=== PATIENT | male | born 1935 | race Caucasian/White ===

== ENCOUNTER → 2016-12-22 | Outpatient (CLI) | payer OTHER ==
[~2016-12-22] MED LIST: ACAR25TA PO; ASPEC81 PO; DLN100 PO; GLC/500 PO; GLIM2TAB2 PO; HLD1 PO; LISI-725 PO; LXP10 PO; MRLP17X PO; SALI0.6510; SIMV40TA4 PO
[2016-12-22 10:04] LABS: ESTIMATED AVERAGE GLUCOSE 183 mg/dl; HA1C FLAG Normal (Normal)
== END ==
LOC: C.LABCC 08:39
PROVIDERS: ATTEND Internal Medicine
DX: E11.9 Type 2 diabetes mellitus without complications (principal)

== ENCOUNTER → 2017-04-21 | Outpatient (CLI) | payer OTHER ==
[2017-04-21 12:37] LABS: ESTIMATED AVERAGE GLUCOSE 209 mg/dl; HA1C FLAG Normal (Normal)
== END ==
LOC: C.LABCC 12:38
PROVIDERS: ATTEND Internal Medicine
DX: E11.9 Type 2 diabetes mellitus without complications (principal)

== ENCOUNTER → 2017-04-25 | Outpatient (CLI) | payer OTHER ==
[2017-04-25 09:45] LABS: BLOOD UREA NITROGEN 28 mg/dl (7-18); BUN/CREATININE RATIO 28.5 (10-20); CARBON DIOXIDE 26 mmol/L (21-32); CHLORIDE 109 mmol/L (98-107); CREATININE 0.98 mg/dl (0.60-1.40); GLUCOSE 143 mg/dl (70-99); POTASSIUM 4.7 mmol/L (3.5-5.1); SODIUM 141 mmol/L (136-145)
[2017-04-25 09:53] LABS: ESTIMATED AVERAGE GLUCOSE 212 mg/dl; HA1C FLAG Normal (Normal)
[2017-04-25 10:18] LABS: CALCIUM 8.6 mg/dl (8.5-10.1)
== END | disposition home or self-care (01) ==
LOC: C.LABCC 09:13
PROVIDERS: ATTEND Internal Medicine
DX: E11.9 Type 2 diabetes mellitus without complications (principal)

== ENCOUNTER → 2017-08-18 | Outpatient (CLI) | payer OTHER ==
[2017-08-18 08:30] LABS: ESTIMATED AVERAGE GLUCOSE 177 mg/dl; HA1C FLAG Normal (Normal)
== END ==
LOC: C.LABCC 07:54
PROVIDERS: ATTEND Internal Medicine
DX: E11.9 Type 2 diabetes mellitus without complications (principal)

== ENCOUNTER → 2017-08-23 | Outpatient (CLI) | payer OTHER ==
[2017-08-23 09:55] LABS: BASO % 0.6 %; BASO ABS # 0.03 K/uL (0-0.2); COMPLETE YES; EOS % 3.9 %; HEMATOCRIT 31.7 % (42-52); IG% 0.2 %; LYMPH % 28.7 %; LYMPH ABS # 1.55 K/uL (1.2-3.4); MEAN CELL VOLUME 88.8 fL (80-100); MEAN CORPUSCULAR HEMOGLOBIN 27.2 pg (25-34); MEAN CORPUSCULAR HGB CONC 30.6 g/dl (32-36); MEAN PLATELET VOLUME 9.3 fL (7.4-10.4); MONO % 13.1 %; NEUT % 53.5 %; PLATELET COUNT 306 K/uL (130-400); RED BLOOD COUNT 3.57 M/uL (4.7-6.1)
[2017-08-23 10:05] LABS: BLOOD UREA NITROGEN 28 mg/dl (7-18); BUN/CREATININE RATIO 28.1 (10-20); CALCIUM 8.6 mg/dl (8.5-10.1); CARBON DIOXIDE 24 mmol/L (21-32); CHLORIDE 109 mmol/L (98-107); CHOLESTEROL 163 mg/dl (0-200); GLUCOSE 116 mg/dl (70-99); SODIUM 141 mmol/L (136-145); TRIGLYCERIDES 127 mg/dl (0-150); VERY LOW DENSITY LIPOPROT CALC 25 mg/dl
[2017-08-23 10:14] LABS: CHOLESTEROL/HDL RATIO 2.9; HDL CHOLESTEROL 57 mg/dl; LDL CHOLESTEROL CALCULATED 81 mg/dl; THYROID STIMULATING HORMONE 0.351 uIu/ml (0.300-4.500)
== END ==
LOC: C.LABCC 09:09
PROVIDERS: ATTEND Internal Medicine
DX: E11.9 Type 2 diabetes mellitus without complications (principal); I10 Essential (primary) hypertension; Z51.81 Encounter for therapeutic drug level monitoring; Z79.899 Other long term (current) drug therapy

== ENCOUNTER → 2017-09-01 | Outpatient (CLI) | payer OTHER ==
[2017-09-01 08:11] LABS: BASO % 0.4 %; BASO ABS # 0.02 K/uL (0-0.2); EOS % 3.6 %; HEMATOCRIT 28.4 % (42-52); IG% 0.4 %; LYMPH % 28.2 %; LYMPH ABS # 1.57 K/uL (1.2-3.4); MEAN CELL VOLUME 86.9 fL (80-100); MEAN CORPUSCULAR HEMOGLOBIN 27.2 pg (25-34); MEAN CORPUSCULAR HGB CONC 31.3 g/dl (32-36); MEAN PLATELET VOLUME 9.4 fL (7.4-10.4); MONO % 16.2 %; NEUT % 51.2 %; PLATELET COUNT 253 K/uL (130-400); RED BLOOD COUNT 3.27 M/uL (4.7-6.1); WHITE BLOOD COUNT 5.57 K/uL (4.8-10.8)
[2017-09-01 08:35] LABS: COMPLETE YES
== END ==
LOC: C.LABCC 07:50
PROVIDERS: ATTEND Internal Medicine
DX: D64.9 Anemia, unspecified (principal)

== ENCOUNTER → 2017-09-11 | Outpatient (CLI) | payer OTHER ==
[2017-09-11 09:59] LABS: BASO % 0.6 %; BASO ABS # 0.03 K/uL (0-0.2); COMPLETE YES; EOS % 3.3 %; HEMATOCRIT 31.8 % (42-52); IG% 0.2 %; LYMPH % 28.9 %; LYMPH ABS # 1.49 K/uL (1.2-3.4); MEAN CELL VOLUME 87.1 fL (80-100); MEAN CORPUSCULAR HEMOGLOBIN 27.1 pg (25-34); MEAN CORPUSCULAR HGB CONC 31.1 g/dl (32-36); MEAN PLATELET VOLUME 9.5 fL (7.4-10.4); MONO % 14.1 %; NEUT % 52.9 %; PLATELET COUNT 267 K/uL (130-400); RED BLOOD COUNT 3.65 M/uL (4.7-6.1); WHITE BLOOD COUNT 5.16 K/uL (4.8-10.8)
[2017-09-11 10:19] LABS: FERRITIN 13.7 ng/ml (8.0-388.0)
== END ==
LOC: C.LABCC 09:11
PROVIDERS: ATTEND Internal Medicine
DX: D64.9 Anemia, unspecified (principal)

== ENCOUNTER → 2017-10-18 | Outpatient (CLI) | payer OTHER | LOC: C.LABCC 08:39 | PROVIDERS: ATTEND Internal Medicine | DX: E55.9 Vitamin D deficiency, unspecified (principal) ==

== ENCOUNTER → 2017-12-21 | Outpatient (CLI) | payer OTHER ==
[2017-12-21 09:56] LABS: HEMOGLOBIN A1C 6.8 % (4.5-5.6)
== END ==
LOC: C.LABCC 08:58
PROVIDERS: ATTEND Internal Medicine
DX: E11.9 Type 2 diabetes mellitus without complications (principal)

== ENCOUNTER → 2018-03-07 | Outpatient (CLI) | payer OTHER ==
[~2018-03-07] MED LIST changes: -ASPEC81 PO; +ASPI-320 PO
[2018-03-07 09:43] LABS: BASO % 0.6 %; BASO ABS # 0.03 K/uL (0-0.2); EOS % 2.9 %; EOS ABS # 0.16 K/uL (0-0.5); HEMATOCRIT 34.8 % (42-52); IG# 0.01 K/uL (0.00-0.02); LYMPH % 29.5 %; MEAN CELL VOLUME 89.2 fL (80-100); MEAN CORPUSCULAR HEMOGLOBIN 28.2 pg (25-34); MEAN CORPUSCULAR HGB CONC 31.6 g/dl (32-36); MEAN PLATELET VOLUME 9.5 fL (7.4-10.4); MONO % 15.8 %; MONO ABS # 0.86 K/uL (0.11-0.59); NEUT ABS # 2.77 K/uL (1.4-6.5); PLATELET COUNT 273 K/uL (130-400); RED CELL DISTRIBUTION WIDTH CV 14.3 % (11.5-14.5); RED CELL DISTRIBUTION WIDTH SD 46.5 fL (36.4-46.3); WHITE BLOOD COUNT 5.43 K/uL (4.8-10.8)
[2018-03-07 09:53] LABS: ALBUMIN 3.3 gm/dl (3.4-5.0); ALT/SGPT 17 U/L (12-78); AST/SGOT 12 U/L (15-37); BLOOD UREA NITROGEN 29 mg/dl (7-18); CALCIUM 8.6 mg/dl (8.5-10.1); CARBON DIOXIDE 26 mmol/L (21-32); CHOLESTEROL 175 mg/dl (0-200); GLUCOSE 77 mg/dl (70-99); POTASSIUM 5.1 mmol/L (3.5-5.1); SODIUM 141 mmol/L (136-145)
[2018-03-07 10:03] LABS: ALKALINE PHOSPHATASE 97 U/L (45-117); LDL CHOLESTEROL CALCULATED 97 mg/dl; TOTAL PROTEIN 6.9 gm/dl (6.4-8.2)
== END ==
LOC: C.LABCC 09:00
PROVIDERS: ATTEND Internal Medicine
DX: E11.9 Type 2 diabetes mellitus without complications (principal); G40.909 Epilepsy, unspecified, not intractable, without status epilepticus; E78.5 Hyperlipidemia, unspecified; E55.9 Vitamin D deficiency, unspecified

== ENCOUNTER → 2018-03-15 | Outpatient (CLI) | payer OTHER | LOC: C.LABCC 07:40 | PROVIDERS: ATTEND Internal Medicine | DX: R56.9 Unspecified convulsions (principal) ==

== ENCOUNTER → 2018-04-01 | Outpatient (CLI) | payer OTHER | LOC: C.LABCC 12:55 | PROVIDERS: ATTEND Internal Medicine | DX: R50.9 Fever, unspecified (principal) ==

== ENCOUNTER → 2018-07-04 | Outpatient (CLI) | payer OTHER ==
[2018-07-04 10:32] LABS: HEMOGLOBIN A1C 6.7 % (4.5-5.6)
== END | disposition home or self-care (01) ==
LOC: C.LABCC 09:12
PROVIDERS: ATTEND Internal Medicine
DX: E11.9 Type 2 diabetes mellitus without complications (principal)

== ENCOUNTER 2019-05-09 11:04 | Inpatient (IN) ==
[2019-05-09] MEDS ORDERED: ACETAMINOPHEN 325 MG TAB PO PRN (12:01)
[2019-05-09] MEDS ORDERED: POLYETHYLENE (MIRALAX) 17 GM PACK PO PRN (12:01)
[2019-05-09] MEDS ORDERED: ONDANSETRON INJ 2 MG/ML 2 ML VIAL IV PRN (12:01)
[2019-05-09] MEDS ORDERED: CARBOHYDRATES FOR HYPOGLYCEMIA PO PRN (12:16)
[2019-05-09] MEDS ORDERED: DEXTROSE 50% 50 ML SYRINGE IV PRN (12:16)
[2019-05-09] MEDS ORDERED: GLUCOSE 10 TABS/TUBE PO PRN (12:16)
[2019-05-09] MEDS ORDERED: GLUCOSE 40% GEL 15 GM TUBE PO PRN (12:16)
[2019-05-09] MEDS ORDERED: GLUCAGON FOR INJ 1 MG VIAL SQ PRN (12:16)
[2019-05-09] MEDS ORDERED: MoRPHine SULFATE 2 MG/ML CARP IV PRN (12:21)
[2019-05-09] MEDS ORDERED: LORazepam 0.5 MG/1 ML VIAL IV PRN (12:21)
[2019-05-09] MEDS ORDERED: MAGNESIUM HYDROXIDE SUSP 30 ML UDC PO PRN (12:23)
[2019-05-09] MEDS ORDERED: ONDANSETRON 4 MG TAB PO PRN (12:23)
[2019-05-09] MEDS ORDERED: BISACODYL 10 MG SUPP PR PRN (12:23)
--- NOTE | 2019-05-09 12:33 | History & Physical Report ---
Date of Service May 09, 2019 Assessment & Plan (1) Diabetic foot infection: Patient is failed outpatient management for his diabetic foot infection with known MRSA by culture. This and will hold his Keflex and doxycycline and start vancomycin therapy. We will not provide gram-negative coverage unless the culture of the wound site provides us concern for gram-negative's. We may consider pursuing an MRI for ostium myelitis as if this would be the case the patient would likely need to progress to below-knee amputation given his previous vascular study showed poor vascular flow and inability to provide intervention to improve. Wound care will see consideration for an irrigation wound VAC is undertaken (2) Diabetes: Patient will remain on basal bolus insulin (3) Anemia, unspecified: Anemia of chronic disease (4) Seizure disorder: Patient is a phenytoin level is subtherapeutic reportedly his seizures are not significant at this time (5) DVT prophylaxis: Heparin subcu for DVT prevention History of Present Illness Primary Care Provider: [facility] Patient is a direct admission from wound care with failing outpatient management for the amputation site of his left great toe. His initial surgery is 03/13. The patient did have a vascular angiogram performed on 04/[address] Ludwig Jaramillo who felt there is no stenosis that was amenable to intervention but there was significant stenosis of decreased blood flow to his foot. The patient has been seeing the outpatient wound care center been on antibiotics including Keflex doxycycline. His wound is has a purulent base or could be greenish slough his foot is erythematous there is no palpable pulses although capillary refill is present but delayed patient has diabetic neuropathy and cannot feel any pain. She is admitted for intravenous antibiotics infectious disease consultation and wound care consultation. Allergies Allergy/AdvReac Type Severity Reaction Status Date / Time Iodinated Contrast- Oral and Allergy Mild Verified 05/09/19 08:48 IV Dye Home Medications Home Medications Medication Instructions Recorded Confirmed Type phenytoin sodium extended 2 cap PO BID 11/02/18 05/09/19 History simvastatin 40 mg PO HS 11/02/18 05/09/19 History ascorbic acid (vitamin C) 500 mg 500 mg PO BID cap 02/05/19 05/09/19 History capsule Fleet Enema [address] DAILY PRN 03/08/19 05/09/19 History Levemir U-100 Insulin 15 unit SUBCUT QPM 03/08/19 05/09/19 History Levemir U-100 Insulin 20 unit SUBCUT QAM 03/08/19 05/09/19 History Novolog U-100 Insulin aspart 1 dose SUBCUT WM 03/08/19 05/09/19 History Novolog U-100 Insulin aspart 8 unit SUBCUT QAM 03/08/19 05/09/19 History Novolog U-100 Insulin aspart 15 unit SUBCUT BID 03/08/19 05/09/19 History acetaminophen 2 tab PO Q6H PRN MDD 3 gms 03/08/19 05/09/19 History bisacodyl [Dulcolax (bisacodyl)] [address] DAILY PRN 03/08/19 05/09/19 History lisinopril 10 mg PO QAM 03/08/19 05/09/19 History magnesium hydroxide [Milk of 30 ml PO DAILY PRN 03/08/19 05/09/19 History Magnesia] multivitamin with minerals 1 tab PO QAM 03/08/19 05/09/19 History ondansetron HCl [Zofran] 4 mg PO Q6H PRN 03/08/19 05/09/19 History protein supplement 30 ml PO BID 03/08/19 05/09/19 History hydrocodone 5 mg-acetaminophen 325 1 tab PO Q6H 04/16/19 05/09/19 History mg tablet acetaminophen 650 mg PO BID 04/24/19 05/09/19 History cephalexin 500 mg capsule 500 mg PO BID 05/01/19 05/09/19 History doxycycline hyclate 100 mg capsule 100 mg PO BID 05/06/19 05/09/19 History Past Med/Surg History Medical History Amputation of great toe, left, traumatic (Acute) Acute kidney failure with tubular necrosis (Chronic) Anemia, unspecified (Chronic) 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) Difficulty in walking, not elsewhere classified (Chronic) Dyslipidemia (Chronic) Dysphagia, oral phase (Chronic) Epilepsy, unspecified, not intractable, without status epilepticus (Chronic) Muscle weakness (generalized) (Chronic) Nontoxic simple goitre (Chronic) Syncope and collapse (Chronic) Compression fracture of T10 vertebra Dementia Diabetes Hypertension Metabolic acidosis Metabolic encephalopathy Neuropathy Osteomyelitis LEG (CURRENTLY GETTING IV ANTIBIOTICS) Rotator cuff tear arthropathy of right shoulder Seizure disorder Thyroid goiter RT SIDE Surgical History No pertinent past surgical history S/P PICC central line placement Social History Preferred Language: Togolese Communication Ability: Effective Shower Doors And Panels Fabricator Required: No Beliefs That Will Affect Care: None Current Living Situation: [facility] Current Living Situation Comment: pt resident of [facility] Other Information That Helps Us Care for You: No Feels Safe at Home: Yes Safety Concerns: Feels Safe At This Time Smoking Status: Former smoker Tobacco Type: pipe and cigars Cigarettes Per Day: Smoked in the s Do You Dip or Chew Tobacco: No Second Hand Exposure: No Tobacco Cessation Education Requested by Patient: No Hx Alcohol Use: No Hx Substance Use: No Review of Systems Review of Systems: ROS: well nourished well developed. No double vision blurry vision No problems with speech or swallowing No palpitations, chest pain or pressure No Wheezing or breathing issues No abdominal pain nausea vomiting diarrhea changes in appetite or weight No burning urine urine frequency or changes in color No focal joint pain or muscle pain Redness to his left foot with greenish slough off in a 2 x 4 cm wound from his previous left great toe imitation March 13, 2019 No unusual bruising or bleeding No focused back pain or loss of strength diabetic peripheral neuropathy is present No changes in memory or confusion Physical Exam Physical Exam: The patient appeared well nourished and normally developed. Vital signs as documented. Head exam is unremarkable. normocephalic, atraumatic Neck is without jugular venous distension, thyromegaly, or lymphademopathy Lungs are clear to auscultation and percussion. Cardiac exam reveals Rhythm is regular. First and second heart sounds normal. Abdominal exam reveals normal bowel sounds, no masses, no organomegaly Extremities are left foot is erythematous and slightly swollen he has gross sensation but fine touch is not intact his wound looks to be slightly dehisced with slough or purulent material in it base Neurologic exam is A&Ox3, peripheral neuropathy from diabetes, strength is equal bilateral Psychologically seems neither anxious or depressed Skin is warm Dry except noted to the left foot Results & Data Vital Signs (Past 12 Hours) Vital Signs Temp Pulse Resp BP Pulse Ox 05/09/19 11:36 36.5 C 83 18 115/[address] Jaramillo did angiogram 04/24/19 REsults; 1. Left lower extremity with mild to moderate distal SFA disease (no significant gradient on catheter pullback). 2. 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 Unsuccessful attempt at revascularization of occluded anterior tibial artery.
[2019-05-09] MEDS ORDERED: PATIENT'S HEIGHT AND/OR WEIGHT NEEDED SCH (12:45)
[2019-05-09] MEDS ORDERED: VANCOMYCIN CONSULT ACTIVE PRN (12:47)
[2019-05-09 13:10] LABS: Basophils # (auto) 0.02 K/uL (0-0.2); Basophils % (auto) 0.2 %; Eosinophils # (auto) 0.18 K/uL (0-0.5); Eosinophils % (auto) 2.2 %; Hematocrit (blood only) 31.4 % (42-52); Hemoglobin 10.1 g/dL (14.0-18.0); Immature Granulocytes # (auto) 0.04 K/uL (0.00-0.02); Immature Granulocytes % (auto) 0.5 %; Lymphocytes # (auto) 1.77 K/uL (1.2-3.4); Lymphocytes % (auto) 21.4 %; Mean Corpuscular Hgb Conc 32.2 g/dL (32-36); Mean Corpuscular Volume 92.1 fL (80-100); Mean Platelet Volume 9.3 fL (7.4-10.4); Monocytes # (auto) 0.94 K/uL (0.11-0.59); Monocytes % (auto) 11.4 %; Neutrophils # (auto) 5.32 K/uL (1.4-6.5); Neutrophils % (auto) 64.3 %; Platelet Count 319 K/uL (130-400); RDW Standard Deviation 50.9 fL (36.4-46.3); Red Blood Count 3.41 M/uL (4.7-6.1); White Blood Count 8.27 K/uL (4.8-10.8)
[2019-05-09 13:29] LABS: BUN Creatinine Ratio 27.8 (10-20); Calcium 9.2 mg/dl (8.5-10.1); Est GFR (African American) 79.6; Est GFR (Non-African American) 68.7; Potassium 4.9 mmol/L (3.5-5.1)
[2019-05-09] MEDS ORDERED: VANCOMYCIN HCL 2,250 MG in SODIUM CHLORIDE 0.9% 500 ML IV ONE (14:00)
--- NOTE | 2019-05-09 14:18 | Pharmacy Report ---
Pharmacy Abx Initial Consult - Date of Service May 09, 2019 - Pharmacy Dosing Scope Date of Consult: 05/09/19 Consultation requested by: Dr. Kendrick Pharmacy is consulted to initiate Vancomycin IV dosing therapy, order appropriate labs and adjust drug dose/frequency. - Subjective The patient is a 84 year old M admitted on 05/09/19 11:06. - Objective Height: 5 ft 6 in Weight: 89.1 kg Vital Signs (Past 12hrs): Vital Signs Temp Pulse Resp BP Pulse Ox 05/09/19 11:36 36.5 C 83 18 115/66 96 Lab Results (24hrs): Laboratory Tests (24 Hours) 05/09/19 05/09/19 12:42 12:42 WBC 8.27 Neut # (Auto) 5.32 Creatinine 0.99 Est Cr Clr Drug Dosing 56.0 - Risk Factors for Resistance * Resident in a penitentiary or extended-care facility * DM * Antimicrobial use within the last 90 days Doxy, Cephalexin - Assessment & Plan Assessment 84 year old M initiated on IV Vancomycin for MRSA DM Foot Ulcer Plan Vancomycin IV * Estimated PK Parameters: Vd 0.65 L/kg, Arnold 0.044 hr-1, t1/2 15.8 hr * Loading dose: 2,250 mg (25 mg/kg) * Maintenance dose: 1,250 mg IV (14 mg/kg) every 18 hours * Goal trough level for SST : 10 to 20 mcg/mL depending on c/s FAVIO * Trough level ordered for 05/11/18 @ 1930 Pharmacy will continue to follow and will adjust dose/frequency as necessary. Thank you.
[2019-05-09] MEDS: HYDROCODONE/ACETAMOPHEN 5/325MG TAB PO SCH ×2 (14:37→17:33)
[2019-05-09] MEDS: INSULIN ASPART 100 UNITS/ML 3 ML PEN SC SCH ×2 (17:27→21:39)
[2019-05-09] MEDS: INSULIN DETEMIR FLEXPEN/FLEX TOUCH 100 UNITS/ML 3ML SC SCH (21:39)
[2019-05-09] MEDS: HEPARIN SOD 5,000 UNIT/0.5 ML VIAL SQ SCH (21:41)
[2019-05-09] MEDS: PHENYTOIN SODIUM ER 100 MG CAP PO SCH (21:43)
[2019-05-09] MEDS: SIMVASTATIN 40 MG TAB PO SCH (21:43)
[2019-05-09] MEDS: ASCORBIC ACID 500 MG TAB PO SCH (21:43)
[2019-05-10] MEDS: HYDROCODONE/ACETAMOPHEN 5/325MG TAB PO SCH ×5 (00:57→23:51)
[2019-05-10 08:20] LABS: Estimated Average Glucose 174 mg/dl; Hemoglobin A1C 7.7 % (4.5-5.6)
[2019-05-10 08:23] LABS: BUN Creatinine Ratio 26.2 (10-20); Calcium 8.8 mg/dl (8.5-10.1); Creatinine Clr Calc Pharmacy 66.8 ml/min; Est GFR (African American) 92.3; Est GFR (Non-African American) 79.7; Potassium 4.6 mmol/L (3.5-5.1)
[2019-05-10] MEDS: VANCOMYCIN HCL 1,250 MG in SODIUM CHLORIDE 0.9% 250 ML IV SCH (08:45)
[2019-05-10] MEDS: LISINOPRIL 10 MG TAB PO SCH (08:46)
[2019-05-10] MEDS: PHENYTOIN SODIUM ER 100 MG CAP PO SCH ×2 (08:46→20:25)
[2019-05-10] MEDS: HEPARIN SOD 5,000 UNIT/0.5 ML VIAL SQ SCH ×2 (08:46→20:26)
[2019-05-10] MEDS: ASCORBIC ACID 500 MG TAB PO SCH ×2 (08:46→20:24)
[2019-05-10] MEDS: INSULIN ASPART 100 UNITS/ML 3 ML PEN SC SCH ×4 (08:51→20:30)
[2019-05-10] MEDS ORDERED: INSULIN DETEMIR FLEXPEN/FLEX TOUCH 100 UNITS/ML 3ML SC SCH (09:00)
[2019-05-10] MEDS ORDERED: LORazepam 0.5 MG/1 ML VIAL IV PRN (10:41)
[2019-05-10] MEDS: INSULIN DETEMIR FLEXPEN/FLEX TOUCH 100 UNITS/ML 3ML SC SCH ×2 (11:08→20:31)
--- NOTE | 2019-05-10 15:08 | Hospitalist Progress Note ---
Date of Service May 10, 2019 Assessment & Plan (1) Diabetic foot infection: Patient is failed outpatient management for his diabetic foot infection with known MRSA by culture. Remains on vancomycin therapy. We will not provide gram-negative coverage unless the culture of the wound site provides us concern for gram-negative's. As patient needs wound VAC placed this will place over the weekend and then we will be pursuing an MRI for ostium myelitis after the weekend. Wound care will see consideration for an irrigation wound VAC is undertaken (2) Diabetes: Patient will remain on basal bolus insulin (3) Anemia, unspecified: Anemia of chronic disease remained stable (4) Seizure disorder: Patient is a phenytoin level is subtherapeutic reportedly his seizures are not significant at this time remains without seizures (5) DVT prophylaxis: Heparin subcu for DVT prevention Subjective Patient has no complaints or problems feels somewhat better he was unable to tolerate MRI scan this morning therefore we will postponed to Monday as he needs his wound VAC placed for the weekend Review of Systems Review of Systems: ROS: well nourished well developed. No double vision blurry vision No problems with speech or swallowing No palpitations, chest pain or pressure No Wheezing or breathing issues No abdominal pain nausea vomiting diarrhea changes in appetite or weight No burning urine urine frequency or changes in color Some mild discomfort to his left foot Redness his left foot is improved since 05/09 No unusual bruising or bleeding No focused back pain has some paresthesias to his feet or loss of strength No changes in memory or confusion Physical Exam Physical Exam: The patient appeared well nourished and normally developed. Vital signs as documented. Head exam is unremarkable. normocephalic, atraumatic Neck is without jugular venous distension, thyromegaly, or lymphademopathy Lungs are clear to auscultation and percussion. Cardiac exam reveals Rhythm is regular. Systolic ejection murmur is present Abdominal exam reveals normal bowel sounds, no masses, no organomegaly Extremities are nonedematous and both pedal pulses are present Neurologic exam is A&Ox3, no focal deficits, strength is equal bilateral Psychologically seems neither anxious or depressed Skin is warm Dry improving erythema to his left foot Results & Data Vital Signs (Past 12 Hours) Vital Signs Temp Pulse Resp BP Pulse Ox 05/10/19 07:00 37 C 84 20 120/69 92 PG Care Time/CCT Total # of Minutes Spent Total Time Spent with Patient: Total time spent is greater than 50% in coordination of care (as documented) at patient's floor/unit and/or counseling patient:
[2019-05-10] MEDS: SIMVASTATIN 40 MG TAB PO SCH (20:24)
[2019-05-11] MEDS: VANCOMYCIN HCL 1,250 MG in SODIUM CHLORIDE 0.9% 250 ML IV SCH ×2 (02:12→20:33)
[2019-05-11] MEDS: HYDROCODONE/ACETAMOPHEN 5/325MG TAB PO SCH ×4 (05:41→23:47)
[2019-05-11 07:21] LABS: Hematocrit (blood only) 28.6 % (42-52); Hemoglobin 9.2 g/dL (14.0-18.0); Mean Corpuscular Hgb Conc 32.2 g/dL (32-36); Mean Corpuscular Volume 90.5 fL (80-100); Platelet Count 291 K/uL (130-400); RDW Coefficient of Variation 14.3 % (11.5-14.5); RDW Standard Deviation 47.8 fL (36.4-46.3); Red Blood Count 3.16 M/uL (4.7-6.1); White Blood Count 7.18 K/uL (4.8-10.8)
[2019-05-11 07:40] LABS: BUN Creatinine Ratio 19.4 (10-20); Calcium 8.4 mg/dl (8.5-10.1); Creatinine Clr Calc Pharmacy 63.7 ml/min; Est GFR (African American) 90.6; Est GFR (Non-African American) 78.1; Potassium 4.4 mmol/L (3.5-5.1)
[2019-05-11] MEDS: ASCORBIC ACID 500 MG TAB PO SCH ×2 (09:59→20:36)
[2019-05-11] MEDS: PHENYTOIN SODIUM ER 100 MG CAP PO SCH ×2 (09:59→20:37)
[2019-05-11] MEDS: INSULIN DETEMIR FLEXPEN/FLEX TOUCH 100 UNITS/ML 3ML SC SCH ×2 (10:00→21:54)
[2019-05-11] MEDS: LISINOPRIL 10 MG TAB PO SCH (10:00)
[2019-05-11] MEDS: HEPARIN SOD 5,000 UNIT/0.5 ML VIAL SQ SCH ×2 (10:00→21:54)
[2019-05-11] MEDS: INSULIN ASPART 100 UNITS/ML 3 ML PEN SC SCH ×4 (10:01→21:55)
--- NOTE | 2019-05-11 14:57 | Hospitalist Progress Note ---
Date of Service May 11, 2019 Assessment & Plan (1) Diabetic foot infection: Patient is failed outpatient management for his diabetic foot infection with known MRSA by culture. His foot has improved on vancomycin therapy. We will not provide gram-negative coverage as wound site cultures confirmed MRSA 05/10, a wound VAC was placed May still consider pursuing MRI for ostium myelitis after the weekend. Wound care will see consideration for an irrigation wound VAC is undertaken (2) Diabetes: Patient has except for glucose is on basal bolus insulin (3) Anemia, unspecified: Anemia of chronic disease continues to remain stable (4) Seizure disorder: Patient is a phenytoin level is subtherapeutic he remains without seizures (5) DVT prophylaxis: Heparin subcu for DVT prevention Subjective pt has no complaints or issues, tolerating wound vacc, foot less swollen and red, Review of Systems Review of Systems: ROS: well nourished well developed. No double vision blurry vision No problems with speech or swallowing No palpitations, chest pain or pressure No Wheezing or breathing issues No abdominal pain nausea vomiting diarrhea changes in appetite or weight No burning urine urine frequency or changes in color No focal joint pain or muscle pain some redness to foot, but much less No unusual bruising or bleeding No focused back pain or loss of strength No changes in memory or confusion Physical Exam Physical Exam: The patient appeared well nourished and normally developed. Vital signs as documented. Head exam is unremarkable. normocephalic, atraumatic Neck is without jugular venous distension, thyromegaly, or lymphademopathy Lungs are clear to auscultation and percussion. Cardiac exam reveals Rhythm is regular. First and second heart sounds normal. Abdominal exam reveals normal bowel sounds, no masses, no organomegaly Extremities left foot his wound VAC in place at the bed of the previous left great toe the foot is less swollen less erythematous still with 4+ pulses and capillary refill Neurologic exam is A&Ox3, diabetic peripheral neuropathy is present, strength is equal bilateral Psychologically seems neither anxious or depressed Skin is warm / Dry except for left foot as mentioned Results & Data Vital Signs (Past 12 Hours) Vital Signs Temp Pulse Resp BP Pulse Ox 05/11/19 08:00 36.9 C 87 19 111/64 91 PG Care Time/CCT Total # of Minutes Spent Total Time Spent with Patient: Total time spent is greater than 50% in coordination of care (as documented) at patient's floor/unit and/or counseling patient:
[2019-05-11] MEDS ORDERED: VANCOMYCIN TROUGH ONE (19:30)
[2019-05-11] MEDS: SIMVASTATIN 40 MG TAB PO SCH (20:36)
--- NOTE | 2019-05-11 21:19 | Pharmacy Report ---
Pharmacy Abx Dose Short Note - Date of Service May 11, 2019 - Assessment & Plan A/P Trough prior to Css, 14.3mcg/mL. Will order a trough tomorrow, 05/12/19, that is reflective of Css. Continue dose and regimen. Pharmacy will continue to follow and will adjust dose/frequency as necessary. Thank you.
[2019-05-12] MEDS ORDERED: VANCOMYCIN HCL 1,250 MG in SODIUM CHLORIDE 0.9% 250 ML IV SCH (06:00)
[2019-05-12] MEDS: HYDROCODONE/ACETAMOPHEN 5/325MG TAB PO SCH ×3 (06:12→17:51)
[2019-05-12 08:04] LABS: BUN Creatinine Ratio 20.9 (10-20); Creatinine Clr Calc Pharmacy 60.3 ml/min; Potassium 4.3 mmol/L (3.5-5.1)
[2019-05-12] MEDS: PHENYTOIN SODIUM ER 100 MG CAP PO SCH ×2 (08:05→20:52)
[2019-05-12] MEDS: LISINOPRIL 10 MG TAB PO SCH (08:05)
[2019-05-12] MEDS: HEPARIN SOD 5,000 UNIT/0.5 ML VIAL SQ SCH ×2 (08:05→20:53)
[2019-05-12] MEDS: ASCORBIC ACID 500 MG TAB PO SCH ×2 (08:05→20:52)
[2019-05-12] MEDS: INSULIN ASPART 100 UNITS/ML 3 ML PEN SC SCH ×4 (08:06→20:56)
[2019-05-12] MEDS: INSULIN DETEMIR FLEXPEN/FLEX TOUCH 100 UNITS/ML 3ML SC SCH ×2 (08:08→20:54)
[2019-05-12] MEDS ORDERED: VANCOMYCIN TROUGH ONE (13:30)
--- NOTE | 2019-05-12 14:31 | Pharmacy Report ---
Pharmacy Abx Dose Short Note - Date of Service May 12, 2019 - Assessment & Plan Assessment 84 year old M receiving vancomycin for treatment of diabetic foot infection Day #4 of antimicrobial therapy. Plan Vancomycin * Trough level came back at slightly subtherapeutic at ~14.7 mcg/ml (goal 15-20 mcg/ml - for wound infection/possible osteo concern) * Will adjust to vancomycin 1250 mg iv q 16 hrs to target slightly higher trough level * Per MD notes, infection improving - currently has wound vac in place, but may order MRI of foot to r/o osteo 05/13 * Renal function remains stable, CrCl ~60 ml/min * Will recheck trough in next 2-3 days or sooner depending on clinical presentation/xray Pharmacy will continue to follow and will adjust dose/frequency as necessary. Thank you.
--- NOTE | 2019-05-12 14:40 | Hospitalist Progress Note ---
Date of Service May 12, 2019 Assessment & Plan (1) Diabetic foot infection: Patient is failed outpatient management for his diabetic foot infection with known MRSA by culture. His foot has improved on vancomycin therapy. We will not provide gram-negative coverage as wound site cultures confirmed MRSA 05/10, a wound VAC was placed patient has had dramatic improvement with vancomycin therapy and the wound VAC. The VAC be removed and reevaluated on Sunday 05/13 consideration for antibiotic therapy will be undertaken with infectious disease oversight. Wound care following and managing wound VAC (2) Diabetes: Patient remains on basal bolus insulin (3) Anemia, unspecified: Anemia of chronic disease present but without concern for change (4) Seizure disorder: Patient is a phenytoin level is subtherapeutic he remains without seizures (5) DVT prophylaxis: Heparin subcu for DVT prevention Subjective this pt is doing better, foot looks much improved on vancomycin, may consider home on linezolid?? VAc in place will be evaluated 05/13/19 Review of Systems Review of Systems: ROS: well nourished well developed. No double vision blurry vision No problems with speech or swallowing No palpitations, chest pain or pressure No Wheezing or breathing issues No abdominal pain nausea vomiting diarrhea changes in appetite or weight No burning urine urine frequency or changes in color pt has paresthesias, but overal feels foot is less painful No skin rashes or oral lesions No unusual bruising or bleeding No focused back pain or numbness or loss of strength No changes in memory or confusion Physical Exam Physical Exam: The patient appeared well nourished and normally developed. Vital signs as documented. Head exam is unremarkable. normocephalic, atraumatic Neck is without jugular venous distension, thyromegaly, or lymphademopathy Lungs are clear to auscultation and percussion. Cardiac exam reveals Rhythm is regular. Systolic ejection murmur is heard Abdominal exam reveals normal bowel sounds, no masses, no organomegaly Extremities, foot is much less erythematous wound VAC is in place neuropathy bilaterally there improved swelling Neurologic exam is A&Ox3, strength is equal bilateral Psychologically seems neither anxious or depressed Skin is warm Dry with the exception of the foot with wound VAC in place Results & Data Vital Signs (Past 12 Hours) Vital Signs Temp Pulse Resp BP Pulse Ox 05/12/19 08:26 36.8 C 87 19 114/72 91 PG Care Time/CCT Total # of Minutes Spent Total Time Spent with Patient: Total time spent is greater than 50% in coordination of care (as documented) at patient's floor/unit and/or counseling patient:
[2019-05-12] MEDS: VANCOMYCIN HCL 1,250 MG in SODIUM CHLORIDE 0.9% 250 ML IV SCH (15:09)
[2019-05-12] MEDS: SIMVASTATIN 40 MG TAB PO SCH (20:53)
[2019-05-13] MEDS: HYDROCODONE/ACETAMOPHEN 5/325MG TAB PO SCH ×5 (00:05→23:50)
[2019-05-13] MEDS ORDERED: LORazepam 0.5 MG/1 ML VIAL IV PRN (04:23)
[2019-05-13] MEDS: VANCOMYCIN HCL 1,250 MG in SODIUM CHLORIDE 0.9% 250 ML IV SCH ×2 (05:58→21:01)
[2019-05-13 06:11] LABS: Hematocrit (blood only) 29.7 % (42-52); Hemoglobin 9.8 g/dL (14.0-18.0); Mean Corpuscular Volume 90.5 fL (80-100); Mean Platelet Volume 9.2 fL (7.4-10.4); Platelet Count 322 K/uL (130-400); RDW Coefficient of Variation 14.3 % (11.5-14.5); RDW Standard Deviation 47.6 fL (36.4-46.3); Red Blood Count 3.28 M/uL (4.7-6.1); White Blood Count 7.74 K/uL (4.8-10.8)
[2019-05-13 06:39] LABS: BUN Creatinine Ratio 19.1 (10-20); Calcium 8.8 mg/dl (8.5-10.1); Creatinine Clr Calc Pharmacy 60.9 ml/min; Est GFR (African American) 88.1; Potassium 4.1 mmol/L (3.5-5.1)
[2019-05-13] MEDS: LISINOPRIL 10 MG TAB PO SCH (07:51)
[2019-05-13] MEDS: PHENYTOIN SODIUM ER 100 MG CAP PO SCH ×2 (07:51→20:58)
[2019-05-13] MEDS: ASCORBIC ACID 500 MG TAB PO SCH ×2 (07:52→21:01)
[2019-05-13] MEDS: INSULIN ASPART 100 UNITS/ML 3 ML PEN SC SCH ×4 (08:48→20:59)
[2019-05-13] MEDS: HEPARIN SOD 5,000 UNIT/0.5 ML VIAL SQ SCH ×2 (08:50→20:58)
[2019-05-13] MEDS: INSULIN DETEMIR FLEXPEN/FLEX TOUCH 100 UNITS/ML 3ML SC SCH ×2 (08:50→21:00)
--- NOTE | 2019-05-13 10:29 | Infectious Disease Consult ---
Date of Consultation May 13, 2019 Assessment & Plan (1) Diabetic foot infection: plan was to convert patient to po zyvox upon d/c. agree with this plan. would give 4 weeks. can follow up with ID at wound center as previously scheduled. Alternative plan would be augmentin 875mg po bid and bactrim ds bid but would prefer to use zyvox, if able. ok for d/c when otherwise stable. History of Present Illness Attending Physician: Ayo English pt admitted due to worsening appearance of foot wound, failed revascularization. follows at wound center, last seen by ID in early April, keflex was added to doxy for wound culture growing MRSA and GBS, however, he was only taken keflex, bactrim then started by snf. he was changed back to doxy and keflex but had worsening appearance of wound. was admitted to undergo irrigating vac and had improvement over weekend. placed on vanco on admission and remains on this. ID consulted for d/c planning. new wound culture this admission growing MRSA again but now resistant to doxy and E. faecalis as well, alvarado sensitive. tolerating abx. no pain in foot, states he is feeling somewhat down today and would like to be d/c. vac to be placed today, currently off. tolerating abx, afebrile. no cp, sob, cough, no n/v/d/abd pain, min pain in foot. wbc 7.7. no imaging to review this admission, afebrile. Allergies Allergy/AdvReac Type Severity Reaction Status Date / Time Iodinated Contrast- Oral and Allergy Mild Verified 05/09/19 08:48 IV Dye Home Medications Home Medications Medication Instructions Recorded Confirmed Type phenytoin sodium extended 2 cap PO BID 11/02/18 05/09/19 History simvastatin 40 mg PO HS 11/02/18 05/09/19 History ascorbic acid (vitamin C) 500 mg 500 mg PO BID cap 02/05/19 05/09/19 History capsule Fleet Enema 1 dose [place] DAILY PRN 03/08/19 05/09/19 History Levemir U-100 Insulin 15 unit SUBCUT QPM 03/08/19 05/09/19 History Levemir U-100 Insulin 20 unit SUBCUT QAM 03/08/19 05/09/19 History Novolog U-100 Insulin aspart 1 dose SUBCUT WM 03/08/19 05/09/19 History Novolog U-100 Insulin aspart 8 unit SUBCUT QAM 03/08/19 05/09/19 History Novolog U-100 Insulin aspart 15 unit SUBCUT BID 03/08/19 05/09/19 History acetaminophen 2 tab PO Q6H PRN MDD 3 gms 03/08/19 05/09/19 History bisacodyl [Dulcolax (bisacodyl)] 10 mg [place] DAILY PRN 03/08/19 05/09/19 History lisinopril 10 mg PO QAM 03/08/19 05/09/19 History magnesium hydroxide [Milk of 30 ml PO DAILY PRN 03/08/19 05/09/19 History Magnesia] multivitamin with minerals 1 tab PO QAM 03/08/19 05/09/19 History ondansetron HCl [Zofran] 4 mg PO Q6H PRN 03/08/19 05/09/19 History protein supplement 30 ml PO BID 03/08/19 05/09/19 History hydrocodone 5 mg-acetaminophen 325 1 tab PO Q6H 04/16/19 05/09/19 History mg tablet acetaminophen 650 mg PO BID 04/24/19 05/09/19 History cephalexin 500 mg capsule 500 mg PO BID 05/01/19 05/09/19 History doxycycline hyclate 100 mg capsule 100 mg PO BID 05/06/19 05/09/19 History Patient History Medical History Amputation of great toe, left, traumatic (Acute) Acute kidney failure with tubular necrosis (Chronic) Anemia, unspecified (Chronic) 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) Difficulty in walking, not elsewhere classified (Chronic) Dyslipidemia (Chronic) Dysphagia, oral phase (Chronic) Epilepsy, unspecified, not intractable, without status epilepticus (Chronic) Muscle weakness (generalized) (Chronic) Nontoxic simple goitre (Chronic) Syncope and collapse (Chronic) Compression fracture of T10 vertebra Dementia Diabetes Hypertension Metabolic acidosis Metabolic encephalopathy Neuropathy Osteomyelitis LEG (CURRENTLY GETTING IV ANTIBIOTICS) Rotator cuff tear arthropathy of right shoulder Seizure disorder Thyroid goiter RT SIDE Surgical History No pertinent past surgical history S/P PICC central line placement Family History Other FHx: cancer Social History Preferred Language: Mauritian Communication Ability: Effective Geothermal Technician Required: No Beliefs That Will Affect Care: None marital status: Single Current Living Situation: Long-Term Current Living Situation Comment: pt resident of [facility] Other Information That Helps Us Care for You: No Feels Safe at Home: Yes Safety Concerns: Feels Safe At This Time Smoking Status: Former smoker Tobacco Type: pipe and cigars Cigarettes Per Day: Smoked in the s Do You Dip or Chew Tobacco: No Second Hand Exposure: No Tobacco Cessation Education Requested by Patient: No Hx Alcohol Use: No Hx Substance Use: No Review of Systems Review of Systems: All systems reviewed & are unremarkable except as noted in HPI & below Physical Exam Constitutional: WD/WN, vitals as above Eyes: PERRL, conjunctivae normal, anicteric sclerae ENMT: external ear and nose normal, oropharynx normal Neck: normal visual inspection Respiratory: normal respiratory effort, lungs clear to auscultation Cardiovascular: RRR, no murmur, no edema Gastrointestinal (Abdomen): normal bowel sounds, soft, nontender, no hepatosplenomegaly Musculoskeletal: no cyanosis or clubbing, extremities motor strength 5/5 Skin: no rashes, warm and dry Psychiatric: A+Ox3, euthymic affect Results & Data Vital Signs (Past 12 Hours) Vital Signs Temp Pulse Resp BP BP Pulse Ox 05/13/19 07:14 37.7 C H 82 18 132/73 92 05/12/19 22:53 36.7 C 90 18 126/68 93 Laboratory Results Microbiology 05/09/19 17:35 Foot,Left Gram Stain - Final 05/09/19 17:35 Foot,Left Deep Wound Culture - Final Staph aureus MRSA Enterococcus faecalis
--- NOTE | 2019-05-13 13:30 | CT Scan Report ---
CT foot LT wo con CLINICAL HISTORY: 84 years-old Male presenting with rule out osteomyelitis.. TECHNIQUE: Multidetector CT of the left foot was performed without the use of intravenous contrast. I V contrast: None. One or more dose lowering techniques were used consistent with the principles of AL TOAN (as low as reasonably achievable), including automatic exposure control, mA or kV adjustment to i ndividual patient size, and/or use of iterative reconstruction. COMPARISON: MR foot from 02/04/2019. CT DOSE (mGy.cm): The estimated cumulative dose is 167.98 mGy.cm. FINDINGS: Maintenance Inspector topogram: Unremarkable. There has been interval amputation of the first toe. Evidence of a subchondral fracture plane in the head of the first metatarsal, with background degenerative changes and osteophytosis. Surrounding sof t tissue emphysema at the head of the first metatarsal as well as tracking long the medial aspect of the first metatarsal to the level of the first metatarsal metatarsal articulation. Fluid and gas surr ounding the first metatarsal head with a focal fluid collection suggested. Extensive associated skin thickening, irregularity and erosion at the level of the head. There is also in of the operative bed along the medial and distal aspect of the amputation site (series 3 image 214). A radiodense suture a ppears to be in place (series 301 image 37). Underlying osteopenia. Visualized portion of the right foot with degenerative change. IMPRESSION: Interval amputation of the first toe with evidence of soft tissue erosion over the first metatarsal h ead, subchondral fracture of the metatarsal head, the extensive fluid and gas at the level of the met atarsal head and tracking along the medial soft tissues. Findings concerning for soft tissue infectio n and osteomyelitis of the first metatarsal head. MR would be more sensitive for this diagnosis. Necr otizing fasciitis not excluded. Some of the soft tissue gas may alternatively be postsurgical. Correl ate clinically with the postsurgical time course. The report will be called/faxed according to standard departmental protocol. Electronically signed by: Ezequiel Palomo M.D. 05/13/2019 1:29 PM
[2019-05-13] MEDS: SIMVASTATIN 40 MG TAB PO SCH (21:01)
--- NOTE | 2019-05-13 23:30 | Hospitalist Progress Note ---
Date of Service May 13, 2019 Assessment & Plan (1) Diabetic foot infection: Patient is failed outpatient management for his diabetic foot infection with known MRSA by culture. His foot has improved on vancomycin therapy. We will not provide gram-negative coverage as wound site cultures confirmed MRSA 05/10, a wound VAC was placed patient has had dramatic improvement with vancomycin therapy and the wound VAC. The VAC be removed and reevaluated on Sunday 05/13 consideration for antibiotic therapy will be undertaken with infectious disease oversight. ID placed discharge recommendations on patient. Can be discharged on zyvox, however, ordered ortho consult after imaging confirms osteomyelitis. Patient may be treated with zyvox, however, would like to hear ortho input prior to discharge, given that patient may be a candidate for amputation. Wound care following and managing wound VAC (2) Diabetes: Patient remains on basal bolus insulin (3) Anemia, unspecified: Anemia of chronic disease present but without concern for change (4) Seizure disorder: Patient is a phenytoin level is subtherapeutic he remains without seizures (5) DVT prophylaxis: Heparin subcu for DVT prevention Spent 35 minutes in management of patient. Subjective 84 yo male wiht history of diabetic foot infection. Patient currently denies any new complaints. Patient reports he was not able to tolerate MRI of his left foot. He states he was too anxious, even though he took medicine prior. He does not want to retyr this even with medicine. Review of Systems Review of Systems: ROS: well nourished well developed. No double vision blurry vision No problems with speech or swallowing No palpitations, chest pain or pressure No Wheezing or breathing issues No abdominal pain nausea vomiting diarrhea changes in appetite or weight No burning urine urine frequency or changes in color pt has paresthesias, but overal feels foot is less painful No skin rashes or oral lesions No unusual bruising or bleeding No focused back pain or numbness or loss of strength No changes in memory or confusion Physical Exam Physical Exam: The patient appeared well nourished and normally developed. Vital signs as documented. Head exam is unremarkable. normocephalic, atraumatic Neck is without jugular venous distension, thyromegaly, or lymphademopathy Lungs are clear to auscultation and percussion. Cardiac exam reveals Rhythm is regular. Systolic ejection murmur is heard Abdominal exam reveals normal bowel sounds, no masses, no organomegaly Extremities, foot is much less erythematous wound VAC CURRENTLY NOT IN PLACE, neuropathy bilaterally there improved swelling Neurologic exam is A&Ox3, strength is equal bilateral Psychologically seems neither anxious or depressed Skin is warm Dry with the exception of the foot with wound VAC in place Results & Data Vital Signs (Past 12 Hours) Vital Signs Temp Pulse Resp BP Pulse Ox 05/13/19 23:23 36.9 C 89 18 108/59 L 93 05/13/19 14:54 36.5 C 98 H 18 103/58 L 93 05/13/19 12:30 36.6 C PG Care Time/CCT Total # of Minutes Spent Total Time Spent with Patient: Total time spent is greater than 50% in coordination of care (as documented) at patient's floor/unit and/or counseling patient:
[2019-05-14] MEDS: HYDROCODONE/ACETAMOPHEN 5/325MG TAB PO SCH ×3 (05:26→17:11)
[2019-05-14 08:06] LABS: Creatinine Clr Calc Pharmacy 60.9 ml/min; Est GFR (African American) 88.1
[2019-05-14] MEDS: HEPARIN SOD 5,000 UNIT/0.5 ML VIAL SQ SCH (08:08)
[2019-05-14] MEDS: INSULIN ASPART 100 UNITS/ML 3 ML PEN SC SCH ×3 (08:11→17:10)
[2019-05-14] MEDS: INSULIN DETEMIR FLEXPEN/FLEX TOUCH 100 UNITS/ML 3ML SC SCH (08:12)
[2019-05-14] MEDS: PHENYTOIN SODIUM ER 100 MG CAP PO SCH (08:12)
[2019-05-14] MEDS: LISINOPRIL 10 MG TAB PO SCH (08:13)
[2019-05-14] MEDS: ASCORBIC ACID 500 MG TAB PO SCH (08:13)
--- NOTE | 2019-05-14 11:42 | Orthopedic Consultation ---
Date of Consultation May 14, 2019 Assessment & Plan (1) Diabetic foot infection: His wound images were reviewed from his chart and there does seem to be some improvement with the wound vac and antibiotics. We discussed treatment options with him including continued management with the vac and abx vs amputation, specifically bka. He does not want to proceed yet with further amputation and would like to continue the wound vac/abx. We'd recommend that he continues with this treatment plan with wound clinic/ID service and if this is not successful follow up with Dr. Mustafa in clinic. History of Present Illness Attending Physician: Ayo English History of Present Illness Mr. Arreola is a 84 y/o male about 6 weeks s/p amputation of left great toe and eventually had some wound dehiscence. He was admitted 5 days ago and has received IV abx as well as wound vac treatment for the left foot wound. There does seem to be some improvement with the wound since beginning the wound vac. He denies pain. Allergies Allergy/AdvReac Type Severity Reaction Status Date / Time Iodinated Contrast- Oral and Allergy Mild Verified 05/09/19 08:48 IV Dye Home Medications Home Medications Medication Instructions Recorded Confirmed Type phenytoin sodium extended 2 cap PO BID 11/02/18 05/09/19 History simvastatin 40 mg PO HS 11/02/18 05/09/19 History ascorbic acid (vitamin C) 500 mg 500 mg PO BID cap 02/05/19 05/09/19 History capsule Fleet Enema 1 dose UT DAILY PRN 03/08/19 05/09/19 History Levemir U-100 Insulin 15 unit SUBCUT QPM 03/08/19 05/09/19 History Levemir U-100 Insulin 20 unit SUBCUT QAM 03/08/19 05/09/19 History Novolog U-100 Insulin aspart 1 dose SUBCUT WM 03/08/19 05/09/19 History Novolog U-100 Insulin aspart 8 unit SUBCUT QAM 03/08/19 05/09/19 History Novolog U-100 Insulin aspart 15 unit SUBCUT BID 03/08/19 05/09/19 History acetaminophen 2 tab PO Q6H PRN MDD 3 gms 03/08/19 05/09/19 History bisacodyl [Dulcolax (bisacodyl)] 10 mg UT DAILY PRN 03/08/19 05/09/19 History lisinopril 10 mg PO QAM 03/08/19 05/09/19 History magnesium hydroxide [Milk of 30 ml PO DAILY PRN 03/08/19 05/09/19 History Magnesia] multivitamin with minerals 1 tab PO QAM 03/08/19 05/09/19 History ondansetron HCl [Zofran] 4 mg PO Q6H PRN 03/08/19 05/09/19 History protein supplement 30 ml PO BID 03/08/19 05/09/19 History hydrocodone 5 mg-acetaminophen 325 1 tab PO Q6H 04/16/19 05/09/19 History mg tablet acetaminophen 650 mg PO BID 04/24/19 05/09/19 History cephalexin 500 mg capsule 500 mg PO BID 05/01/19 05/09/19 History doxycycline hyclate 100 mg capsule 100 mg PO BID 05/06/19 05/09/19 History Patient History Medical History Amputation of great toe, left, traumatic (Acute) Acute kidney failure with tubular necrosis (Chronic) Anemia, unspecified (Chronic) 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) Difficulty in walking, not elsewhere classified (Chronic) Dyslipidemia (Chronic) Dysphagia, oral phase (Chronic) Epilepsy, unspecified, not intractable, without status epilepticus (Chronic) Muscle weakness (generalized) (Chronic) Nontoxic simple goitre (Chronic) Syncope and collapse (Chronic) Compression fracture of T10 vertebra Dementia Diabetes Hypertension Metabolic acidosis Metabolic encephalopathy Neuropathy Osteomyelitis LEG (CURRENTLY GETTING IV ANTIBIOTICS) Rotator cuff tear arthropathy of right shoulder Seizure disorder Thyroid goiter RT SIDE Surgical History No pertinent past surgical history S/P PICC central line placement Family History Other FHx: cancer Social History Preferred Language: Slovak Communication Ability: Effective Combination Man Required: No Beliefs That Will Affect Care: None marital status: Single Current Living Situation: [facility] Current Living Situation Comment: pt resident of [facility] Other Information That Helps Us Care for You: No Feels Safe at Home: Yes Safety Concerns: Feels Safe At This Time Smoking Status: Former smoker Tobacco Type: pipe and cigars Cigarettes Per Day: Smoked in the 1949's Do You Dip or Chew Tobacco: No Second Hand Exposure: No Tobacco Cessation Education Requested by Patient: No Hx Alcohol Use: No Hx Substance Use: No Physical Exam Physical Exam: He's alert, NAD. Seems slightly confused. I did not remove his dressing/sock on the left foot. He has no streaking erythema or swelling up his lower leg. Results & Data Vital Signs (Past 12 Hours) Vital Signs Temp Pulse Resp BP Pulse Ox 05/14/19 08:00 36.4 C L 96 H 21 131/[address] scan shows some evidence of soft tissue infection and osteomyelitis
[2019-05-14] MEDS ORDERED: VANCOMYCIN TROUGH ONE (13:30)
--- NOTE | 2019-05-14 14:30 | Infectious Disease Progress Nt ---
Date of Service May 14, 2019 Assessment & Plan (1) Diabetic foot infection: plan was to convert patient to po zyvox upon d/c. agree with this plan. would give 4 weeks. can follow up with ID at wound center as previously scheduled. Alternative plan would be augmentin 875mg po bid and bactrim ds bid but would prefer to use zyvox, if able. ok for d/c when otherwise stable. Subjective pt seen in followup, ct showing osteo and gas in tissue, ortho eval obtained, discussed surgery, suggested bka, pt declined. vac remain off. remains on vanco. tolerating well. remain afebrile. denies pain or drainage from wound, no abd pain, eating well. denies cp, sob, cough. Review of Systems Review of Systems: All systems reviewed & are unremarkable except as noted in HPI & below Physical Exam Constitutional: WD/WN, vitals as above Eyes: PERRL, conjunctivae normal, anicteric sclerae ENMT: external ear and nose normal, oropharynx normal Neck: normal visual inspection Respiratory: normal respiratory effort, lungs clear to auscultation Cardiovascular: RRR, no murmur, no edema Gastrointestinal (Abdomen): normal bowel sounds, soft, nontender, no hepatosplenomegaly Musculoskeletal: no cyanosis or clubbing, extremities motor strength 5/5 Skin: no rashes, warm and dry Psychiatric: A+Ox3, euthymic affect Results & Data Vital Signs (Past 12 Hours) Vital Signs Temp Pulse Resp BP BP Pulse Ox 05/14/19 14:14 36.4 C L 96 H 21 126/68 131/78 90 05/14/19 08:00 36.4 C L 96 H 21 131/78 90 Laboratory Results Microbiology 05/09/19 17:35 Foot,Left Gram Stain - Final 05/09/19 17:35 Foot,Left Deep Wound Culture - Final Staph aureus MRSA Enterococcus faecalis
[2019-05-14] MEDS: VANCOMYCIN HCL 1,250 MG in SODIUM CHLORIDE 0.9% 250 ML IV SCH (14:41)
--- NOTE | 2019-05-22 10:57 | Discharge Summary ---
Date of Service May 14, 2019 Admission HPI Per Admitting Provider Patient is a direct admission from wound care with failing outpatient management for the amputation site of his left great toe. His initial surgery is 03/13. The patient did have a vascular angiogram performed on 04/[address] Ludwig Jaramillo who felt there is no stenosis that was amenable to intervention but there was significant stenosis of decreased blood flow to his foot. The patient has been seeing the outpatient wound care center been on antibiotics including Keflex doxycycline. His wound is has a purulent base or could be greenish slough his foot is erythematous there is no palpable pulses although ca pillary refill is present but delayed patient has diabetic neuropathy and cannot feel any pain. She is admitted for intravenous antibiotics infectious disease consultation and wound care consultation. Principal Diagnosis Diabetic foot infection Discharge Exam The patient appeared well nourished and normally developed. Vital signs as documented. Head exam is unremarkable. normocephalic, atraumatic Neck is without jugular venous distension, thyromegaly, or lymphademopathy Lungs are clear to auscultation and percussion. Cardiac exam reveals Rhythm is regular. Systolic ejection murmur is heard Abdominal exam reveals normal bowel sounds, no masses, no organomegaly Extremities, foot is much less erythematous, neuropathy bilaterally there improved swelling Neurologic exam is A&Ox3, strength is equal bilateral Psychologically seems neither anxious or depressed Skin is warm Dry Discharge Data Allergies Allergy/AdvReac Type Severity Reaction Status Date / Time Iodinated Contrast- Oral and Allergy Mild Verified 05/09/19 08:48 IV Dye Consultations 05/13/19 08:22 Consult Infectious Diseases Routine 05/13/19 16:21 Consult Orthopedic Surgery Routine Ordered Studies 05/13/19 12:16 CT foot LT wo con Routine Hospital Course (1) Diabetic foot infection: Patient is failed outpatient management for his diabetic foot infection with known MRSA by culture. His foot has improved on vancomycin therapy. We will not provide gram-negative coverage as wound site cultures confirmed MRSA 05/10, a wound VAC was placed patient has had dramatic improvement with vancomycin therapy and the wound VAC. The VAC be removed and reevaluated on Sunday 05/13 consideration for antibiotic therapy will be undertaken with infectious disease oversight. ID placed discharge recommendations on patient. Can be discharged on zyvox, however, ordered ortho consult after imaging confirms osteomyelitis. Patient may be treated with zyvox, however, would like to hear ortho input prior to discharge, given that patient may be a candidate for amputation. Wound care following and managing wound VAC; Patient will be discharged on linezolid. Patient will followup with wound care. Patient does not need wound vac at discharge as per wound care. (2) Diabetes: Patient remains on basal bolus insulin; will resume home regimen at discharge (3) Anemia, unspecified: Anemia of chronic disease present but without concern for change (4) Seizure disorder: Patient is a phenytoin level is subtherapeutic, remains without seizures (5) DVT prophylaxis: Heparin subcu for DVT prevention Total Time Total Time Spent Total Time Spent (In Minutes): 32 Total Time Includes: Examination of the Patient, Discharge Planning and Medication Reconciliation Discharge Plan Discharge Items Patient Disposition: Transfer Alf Fac Reason For Visit: DIABETIC FOOT INFECTION Discharge Diagnosis: Diabetic foot infection Discharge Goals: Decrease discomfort Activity: Resume your previous activity Non-emergency contact: Primary Care Provider Call non-emergency contact if: you have any medication questions Follow-up/Referrals: William Ni [Primary Care Provider] - Diet: Carb Consistent or DM2 Addtl Provider Instructions: Will be discharged on Linezolid. Will recommend followup with PCP and wound care clinic within 1 week. To left 1st toe amputation site- irrigate with saline. Cover with aquacel Ag and secure with optifoam. Change every other day and as needed for drainage. Follow up at [facility] within 1 week of discharge. Prescriptions: New linezolid 600 mg tablet 600 mg PO BID 28 Days Qty: 56 RF: 0 Continued ascorbic acid (vitamin C) 500 mg capsule 500 mg PO BID RF: 0 hydrocodone-acetaminophen 5-325 mg tablet 1 tab PO Q6H RF: 0 phenytoin sodium extended 100 mg Capsule 2 cap PO BID RF: 0 simvastatin 40 mg Tablet 40 mg PO HS RF: 0 lisinopril 10 mg Tablet 10 mg PO QAM RF: 0 Levemir U-100 Insulin 100 unit/mL Solution 15 unit SUBCUT QPM RF: 0 Novolog U-100 Insulin aspart 100 unit/mL solution 1 dose SUBCUT WM RF: 0 Levemir U-100 Insulin 100 unit/mL Solution 20 unit SUBCUT QAM RF: 0 Novolog U-100 Insulin aspart 100 unit/mL Solution 15 unit SUBCUT BID RF: 0 acetaminophen 325 mg Tablet 2 tab PO Q6H MDD 3 gms PRN (Reason: Pain) RF: 0 ondansetron HCl [Zofran] 4 mg Tablet 4 mg PO Q6H PRN (Reason: Nausea) RF: 0 Novolog U-100 Insulin aspart 100 unit/mL Solution 8 unit SUBCUT QAM RF: 0 multivitamin with minerals Tablet 1 tab PO QAM RF: 0 magnesium hydroxide [Milk of Magnesia] 400 mg/5 mL Suspension 30 ml PO DAILY PRN (Reason: Constipation) RF: 0 bisacodyl [Dulcolax (bisacodyl)] 10 mg Suppository 10 mg ND DAILY PRN (Reason: Constipation) RF: 0 Fleet Enema 19-7 gram/118 mL Enema 1 dose ND DAILY PRN (Reason: Constipation) RF: 0 protein supplement Liquid 30 ml PO BID RF: 0 Discontinued cephalexin [Keflex] 500 mg capsule 500 mg PO BID RF: 0 doxycycline hyclate 100 mg capsule 100 mg PO BID RF: 0 acetaminophen 325 mg Tablet 650 mg PO BID RF: 0 Stand-Alone Forms: [facility] Discharge Orders: Discharge Order (Routine); Ordered 05/14/19 Ordered By: Ayo English Skilled Items Patient informed of condition?: Yes DNR: No Discharge Level of Care: Skilled Communicable Disease: No Discharge Prognosis: Stable Admission Data Admit Date/Time: 05/09/19 11:06 Attending Provider: Ayo English Admit Provider: Ralf Kendrick Primary Care Provider: William Ni Service: Medical Other Interventions: Discharge Summary Assessment (RN) Last Done: 05/14/19 14:14 DC Date/Time DO NOT enter until pt leaves facility: 05/14/19 17:56
== END 2019-05-14 17:56 | DRG 566 ==
LOC: SUATTDRO 11:06 → 2W 11:06
DX: G40.909 Epilepsy, unspecified, not intractable, without status epilepticus; Z89.422 Acquired absence of other left toe(s); D64.9 Anemia, unspecified; Y83.5 Amputation of limb(s) as the cause of abnormal reaction of the patient, or of later complication, without mention of misadventure at the time of the procedure; T87.44 Infection of amputation stump, left lower extremity; B95.62 Methicillin resistant Staphylococcus aureus infection as the cause of diseases classified elsewhere; E11.42 Type 2 diabetes mellitus with diabetic polyneuropathy; Z79.4 Long term (current) use of insulin

== ENCOUNTER 2019-07-01 11:48 | Inpatient (IN) ==
[2019-07-01] MEDS ORDERED: SODIUM CHLORIDE 0.9% 1000ML 1,000 ML IV SCH (12:15)
[2019-07-01] MEDS ORDERED: PIPERACILLIN/TAZOBACTAM 4.5 GM/120 ML BAG IV ONE (12:19)
[2019-07-01] MEDS ORDERED: PIPERACILL/TAZOBAC CONSULT ACTIVE PRN (12:19)
[2019-07-01] MEDS ORDERED: VANCOMYCIN CONSULT ACTIVE PRN (12:19)
[2019-07-01] MEDS ORDERED: VANCOMYCIN HCL 2,250 MG in SODIUM CHLORIDE 0.9% 500 ML IV ONE (12:19)
[2019-07-01 12:25] LABS: Basophils # (auto) 0.02 K/uL (0-0.2); Basophils % (auto) 0.2 %; Eosinophils # (auto) 0.08 K/uL (0-0.5); Eosinophils % (auto) 0.7 %; Hemoglobin 9.9 g/dL (14.0-18.0); Immature Granulocytes # (auto) 0.04 K/uL (0.00-0.02); Immature Granulocytes % (auto) 0.4 %; Lymphocytes # (auto) 1.06 K/uL (1.2-3.4); Lymphocytes % (auto) 9.3 %; Mean Corpuscular Volume 97.4 fL (80-100); Mean Platelet Volume 9.2 fL (7.4-10.4); Monocytes % (auto) 9.7 %; Neutrophils # (auto) 9.04 K/uL (1.4-6.5); Neutrophils % (auto) 79.7 %; Platelet Count 252 K/uL (130-400); RDW Coefficient of Variation 16.1 % (11.5-14.5); RDW Standard Deviation 56.9 fL (36.4-46.3); Red Blood Count 3.08 M/uL (4.7-6.1); White Blood Count 11.34 K/uL (4.8-10.8)
[2019-07-01 12:35] LABS: Alanine Aminotransferase 24 U/L (12-78); Albumin Level 2.3 gm/dl (3.4-5.0); Aspartate Aminotransferase 27 U/L (15-37); BUN Creatinine Ratio 21.8 (10-20); Blood Urea Nitrogen 32 mg/dl (7-18); Calcium 7.9 mg/dl (8.5-10.1); Carbon Dioxide 25 mmol/L (21-32); Chloride 106 mmol/L (98-107); Creatinine Clr Calc Pharmacy 37.8 ml/min; Est GFR (African American) 50.2; Est GFR (Non-African American) 43.3; Glucose 180 mg/dl (70-99); Potassium 4.5 mmol/L (3.5-5.1); Sodium 136 mmol/L (136-145)
[2019-07-01 12:40] LABS: Albumin Globulin Ratio 0.5 (0.9-2); Alkaline Phosphatase 89 U/L (45-117); Bilirubin,Total 0.2 mg/dl (0.2-1); Globulin 4.5 gm/dl (2.5-4.0); Total Protein 6.8 gm/dl (6.4-8.2); Troponin I < 0.015 ng/ml (0-0.045)
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
[2019-07-01] MEDS ORDERED: INSULIN ASPART SQ SCH ×2 (16:36→21:00)
[2019-07-01] MEDS ORDERED: MAGNESIUM HYDROXIDE SUSP 30 ML UDC PO PRN (16:36)
[2019-07-01] MEDS ORDERED: BISACODYL 10 MG SUPP PR PRN (16:36)
[2019-07-01] MEDS ORDERED: SOD PHOSPHATE/SOD BIPHOSPHATE ENEMA 132 ML BTL PR PRN (16:45)
[2019-07-01 17:05] LABS: INR 1.1 (0.9-1.1); Partial Thromboplastin Ratio 1.2; Partial Thromboplastin Time 31.3 Seconds (21.0-31.0); Prothrombin Time 10.9 Seconds (9.0-12.0)
[2019-07-01] MEDS ORDERED: DEXTROSE 50% 50 ML SYRINGE IV PRN (17:15)
[2019-07-01] MEDS ORDERED: GLUCOSE 10 TABS/TUBE PO PRN (17:15)
[2019-07-01] MEDS ORDERED: CARBOHYDRATES FOR HYPOGLYCEMIA PO PRN (17:15)
[2019-07-01] MEDS ORDERED: GLUCAGON FOR INJ 1 MG VIAL IM PRN (17:15)
[2019-07-01] MEDS ORDERED: GLUCOSE 40% GEL 15 GM TUBE PO PRN (17:15)
[2019-07-01] MEDS: SODIUM CHLORIDE 0.9% 1000ML 1,000 ML IV SCH (17:46)
[2019-07-01] MEDS: PIPERACILLIN/TAZOBACTAM 3.375 GM in DEXTROSE 5% 100 ML IV SCH (18:17)
[2019-07-01] MEDS ORDERED: PROTEIN SUPPLEMENT PO SCH (21:00)
--- NOTE | 2019-07-01 21:21 | History & Physical Report ---
Date of Service July 01, 2019 Assessment & Plan (1) Osteomyelitis: Pt is willing now to have amputation of the left foot. Discussed with Dr. Anjel Jones. he will see pt tomorrow but recommended MRI of the left foot and vascular consult. Pt already had vascular consult and angiogram on 04/24 will discuss tomorrow after MRI results what is the next option of tretment specifically now pt agrees with amputation. Continued Linezolid 600 mg PO BID as per ID recommendations. Monitor daily labs, replenish lytes as necessary. DVT ppx Heparin 5000 Q8 hr sc Full code Present on Admission?: Yes (2) Cellulitis: as the above Present on Admission?: Yes (3) DVT prophylaxis: Heparin 5000 units sc Q8 hr Present on Admission?: Yes (4) Diabetic foot infection: as the above Present on Admission?: Yes (5) Surgical wound, non healing: as the above (6) Diabetic foot ulcer associated with type 2 diabetes mellitus: as the above (7) PAD (peripheral artery disease): pt had extensive evaluation by vascular on 04/24 Present on Admission?: Yes (8) Diabetes mellitus: continue home regimen , SSI,accuchecks AC&HS Present on Admission?: Yes (9) Seizure: stable, continue home dose of Phenytoin Present on Admission?: Yes (10) Hyperlipidemia: stable , continue home dose of Simvastatin 40 mg PO Qhs Present on Admission?: Yes (11) Hypertension: stable , continue home dose of Lisinopril 10 mg QD Present on Admission?: Yes (12) Metabolic encephalopathy: continue monitoring daily blabs and diabetes mellitus. Present on Admission?: Yes History of Present Illness Primary Care Provider: [facility] 84 y/o male with PMHx of DM ty 2, hyperlipidemia, , PAD, chronic osteomyelitis, hypertension, metabolic encephalopathy was brought from the [facility] due to nonhealing diabetic ulcer of the left foot. Pt was hypotensive in the ER but blood pressure improved after 1 L of IV NS. Pt denies fever, chills, chest pain, SOB, abdominal pain, frequency or urgency. Pt was recently admitted for the same issue and it was recommended to have amputation for for chronic osteo but he refused and requested conservative treatment only. ID recommended at that time Zyvox for 4 weeks which he continued at [facility]. In the prior admission(05/09-05/14) pt was seen by ortho and vascular.In addition pt was in the hospital prior to this visit from wound care with failing outpatient management for the amputation site of his left great toe. His initial surgery is 03/13. The patient did have a vascular angiogram performed on 04/[address] Ludwig Jaramillo who felt there is no stenosis that was amenable to intervention but there was significant stenosis of decreased blood flow to his foot. Summary: 1. Left lower extremity with mild to moderate distal SFA disease (no significant gradient on catheter pullback). 2. 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 Unsuccessful attempt at revascularization of occluded anterior tibial artery. Recommendations: Tibial arteries are small, calcified and diffusely diseased with complex collateral network. Intervention options limited and likelihood of success with further attempts flow. In the setting of age/comorbidities, active albeit slow wound healing, and nonambulatory status recommend continued medical management. Allergies Allergy/AdvReac Type Severity Reaction Status Date / Time Iodinated Contrast- Oral and Allergy Mild Verified 07/01/19 12:01 IV Dye Home Medications Home Medications Medication Instructions Recorded Confirmed Type phenytoin sodium extended 2 cap PO BID 11/02/18 07/01/19 History simvastatin 40 mg PO HS 11/02/18 07/01/19 History ascorbic acid (vitamin C) 500 mg 500 mg PO BID cap 02/05/19 07/01/19 History capsule Fleet Enema 1 dose [place] DAILY PRN 03/08/19 07/01/19 History Levemir U-100 Insulin 15 unit SUBCUT HS 03/08/19 07/01/19 History Levemir U-100 Insulin 20 unit SUBCUT QAM 03/08/19 07/01/19 History Novolog U-100 Insulin aspart 8 unit SUBCUT QAM 03/08/19 07/01/19 History Novolog U-100 Insulin aspart 15 unit SUBCUT BID 03/08/19 07/01/19 History acetaminophen 2 tab PO Q6H PRN MDD 3 gms 03/08/19 07/01/19 History bisacodyl [Dulcolax (bisacodyl)] 10 mg [place] DAILY PRN 03/08/19 07/01/19 History lisinopril 10 mg PO QAM 03/08/19 07/01/19 History magnesium hydroxide [Milk of 30 ml PO DAILY PRN 03/08/19 07/01/19 History Magnesia] multivitamin with minerals 1 tab PO QAM 03/08/19 07/01/19 History protein supplement 30 ml PO BID 03/08/19 07/01/19 History hydrocodone 5 mg-acetaminophen 325 1 tab PO Q6H PRN 04/16/19 07/01/19 History mg tablet hydrocodone-acetaminophen 1 tab PO BID 07/01/19 07/01/19 History insulin lispro [Humalog U-100 0 sliding scale dose SUBCUT UD 07/01/19 07/01/19 History Insulin] linezolid 600 mg PO BID 07/01/19 07/01/19 History sulfamethoxazole-trimethoprim 1 tab PO BID 07/01/19 07/01/19 History Past Med/Surg History Medical History Amputation of great toe, left, traumatic (Acute) Acute kidney failure with tubular necrosis (Chronic) Anemia, unspecified (Chronic) 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) Difficulty in walking, not elsewhere classified (Chronic) Dyslipidemia (Chronic) Dysphagia, oral phase (Chronic) Epilepsy, unspecified, not intractable, without status epilepticus (Chronic) Muscle weakness (generalized) (Chronic) Nontoxic simple goitre (Chronic) Syncope and collapse (Chronic) Compression fracture of T10 vertebra Dementia Diabetes Hypertension Metabolic acidosis Metabolic encephalopathy Neuropathy Osteomyelitis LEG (CURRENTLY GETTING IV ANTIBIOTICS) Rotator cuff tear arthropathy of right shoulder Seizure disorder Thyroid goiter RT SIDE Surgical History No pertinent past surgical history S/P PICC central line placement Family History Other FHx: cancer Social History Preferred Language: Tunisian Communication Ability: Effective 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 Beliefs That Will Affect Care: None marital status: Single Current Living Situation: [facility] Current Living Situation Comment: pt resident of [facility] Other Information That Helps Us Care for You: No Feels Safe at Home: Yes Safety Concerns: Feels Safe At This Time Smoking Status: Former smoker Tobacco Type: pipe and cigars ; Cigarettes Per Day: Smoked in the s ; Do You Dip or Chew Tobacco: No ; Smoking End Date: ; Second Hand Exposure: No ; Tobacco Cessation Education Requested by Patient: No Hx Alcohol Use: No Hx Substance Use: No Review of Systems Review of Systems: All systems reviewed & are unremarkable except as noted in HPI & below Musculoskeletal: + swelling left foot swelling erythema and edema Physical Exam Constitutional: well developed, well nourished and + obese Eyes: PERRL, conjunctivae normal, anicteric sclerae ENMT: external ear and nose normal, oropharynx normal Neck: trachea midline, no thyromegaly Respiratory: normal respiratory effort, lungs clear to auscultation Cardiovascular: RRR, no murmur, no edema Chest (Breasts): normal inspection/palpation of breasts Gastrointestinal (Abdomen): normal bowel sounds, soft, nontender, no hepatosplenomegaly Musculoskeletal: Extremities: + amputation noted and + leg internally rotated Shoulder: + limited ROM Hip: + deformity Knee: + varus laxity left foot with open nonhealing ulcer s/p amputation of the big toe and wound care since 05/14.Associated with erythema , swelling and varus deformity. Lymphatic: no cervical or axillary lymphadenopathy Results & Data Vital Signs (Past 12 Hours) Vital Signs Temp Pulse Pulse Pulse Resp BP BP 07/01/19 19:28 36.7 C 90 18 137/72 07/01/19 17:29 84 07/01/19 16:37 36.8 C 87 20 123/63 07/01/19 16:00 97 H 29 H 118/54 L 07/01/19 15:30 81 21 113/55 L 07/01/19 15:00 84 20 122/59 L 07/01/19 14:30 81 17 113/61 07/01/19 14:01 81 17 102/43 L 07/01/19 14:00 82 18 07/01/19 13:30 104 H 29 H 130/77 07/01/19 13:00 84 23 122/49 L 07/01/19 12:43 85 15 113/65 07/01/19 12:30 86 24 07/01/19 12:11 37.1 C 82 20 118/62 07/01/19 12:00 88 27 H 07/01/19 11:57 90 20 07/01/19 11:56 90 25 H 118/62 Pulse Ox 07/01/19 19:28 93 07/01/19 17:29 07/01/19 16:37 94 07/01/19 16:00 99 07/01/19 15:30 94 07/01/19 15:00 98 07/01/19 14:30 99 07/01/19 14:01 07/01/19 14:00 07/01/19 13:30 07/01/19 13:00 90 07/01/19 12:43 98 07/01/19 12:30 97 07/01/19 12:11 95 07/01/19 12:00 07/01/19 11:57 93 07/01/19 11:56 Code Status & VTE Plan Code Status full code VTE Prophylaxis Plan VTE Prophylaxis will be ordered: Yes PG Care Time/CCT Total # of Minutes Spent Total Time Spent with Patient: Total time spent is greater than 50% in coordination of care (as documented) at patient's floor/unit and/or counseling patient: (1) Hypertension Hypertension type: essential hypertension Qualified Code(s): I10 - Essential (primary) hypertension
[2019-07-01] MEDS: PHENYTOIN SODIUM ER 100 MG CAP PO SCH (21:54)
[2019-07-01] MEDS: INSULIN ASPART 100 UNITS/ML 3 ML PEN SC SCH (21:55)
[2019-07-01] MEDS: INSULIN DETEMIR FLEXPEN/FLEX TOUCH 100 UNITS/ML 3ML SC SCH (21:58)
[2019-07-01] MEDS: ASCORBIC ACID 500 MG TAB PO SCH (21:58)
[2019-07-01] MEDS: SIMVASTATIN 40 MG TAB PO SCH (21:59)
[2019-07-01] MEDS: LINEZOLID 600 MG TAB PO SCH (21:59)
--- NOTE | 2019-07-01 21:59 | Magnetic Resonance Report ---
MR foot LT w/o con HISTORY: 84 years-old Male left foot osteomyelitis chronic left foot pain with MRSA. Open wound of t he great toe distribution. History of prior amputation of the great toe. COMPARISON: Left foot radiographs 07/01/2019, left foot MRI 05/13/2019 TECHNIQUE: Multiplanar multisequence MRI of the left foot was obtained without the use of IV contrast . FINDINGS: The study is very motion degraded which limits the exam with many of the sequences nearly nondiagnost ic. Postoperative changes from prior amputation at the level of the metatarsal phalangeal joint. Ther e is an open wound with soft tissue defect at the amputation site measuring up to 2.1 x 1.0 x 1.9 cm. No drainable fluid collection identified. Diffuse muscular atrophy about the foot with extensive int ramuscular edema. The intrinsic ligaments and tendons are not well evaluated secondary to aforementio bertha motion degradation. Cortical indistinctness with gross of changes. Decreased T1 signal and extens agustina increased T2 signal noted about the first metatarsal extending to level of the distal diaphyseal distribution. Moderate to extensive bone marrow edema about the fifth MTP joint with adjacent deep ti ssue air. Extensive bone marrow edema about the second MTP joint, notably within the proximal phalanx and also within the metatarsal head with decreased T1 marrow signal. Subcutaneous edema is also note d throughout. IMPRESSION: 1. Extensively motion degraded exam. 2. Postoperative changes from prior amputation of the first digit at the level of the first MTP joint . Soft tissue ulcer within this distribution is noted along with findings suggestive of osteomyelitis of the first metatarsal head and distal diaphysis. 3. Additional bone marrow edema about the second and fifth metatarsal heads and proximal phalanges. T hese findings may be on a reactive basis or reflect additional sites of osteomyelitis. Correlate clin ically. 4. Findings suggestive of cellulitis and myositis of the foot. 5. Deep tissue air adjacent to the fifth MTP joint. Correlate clinically to exclude gas-forming organ ism. The above report was generated using voice recognition software. It may contain grammatical, syntax o r spelling errors. Electronically signed by: Devon Curiel M.D. 07/01/2019 9:56 PM
[2019-07-01] MEDS: HYDROCODONE/ACETAMOPHEN 5/325MG TAB PO SCH (22:02)
[2019-07-01] MEDS: HEPARIN SOD 5,000 UNIT/0.5 ML VIAL SQ SCH (22:03)
[2019-07-02] MEDS: PIPERACILLIN/TAZOBACTAM 3.375 GM in DEXTROSE 5% 100 ML IV SCH ×3 (02:11→18:58)
[2019-07-02] MEDS: HEPARIN SOD 5,000 UNIT/0.5 ML VIAL SQ SCH ×3 (06:00→20:37)
[2019-07-02] MEDS: SODIUM CHLORIDE 0.9% 1000ML 1,000 ML IV SCH ×2 (06:00→18:58)
[2019-07-02] MEDS: LINEZOLID 600 MG TAB PO SCH ×2 (07:52→20:34)
[2019-07-02] MEDS: HYDROCODONE/ACETAMOPHEN 5/325MG TAB PO SCH ×2 (07:52→20:41)
[2019-07-02] MEDS: CEROVITE ADV FORMULA TAB PO SCH (07:52)
[2019-07-02] MEDS: PHENYTOIN SODIUM ER 100 MG CAP PO SCH ×2 (07:52→20:35)
[2019-07-02] MEDS: ASCORBIC ACID 500 MG TAB PO SCH ×2 (07:52→20:33)
[2019-07-02] MEDS: LISINOPRIL 10 MG TAB PO SCH (07:52)
[2019-07-02] MEDS: INSULIN DETEMIR FLEXPEN/FLEX TOUCH 100 UNITS/ML 3ML SC SCH ×2 (07:53→20:37)
[2019-07-02] MEDS: INSULIN ASPART 100 UNITS/ML 3 ML PEN SC SCH ×4 (07:53→20:38)
--- NOTE | 2019-07-02 08:17 | Hospitalist Progress Note ---
Date of Service July 02, 2019 Assessment & Plan (1) Osteomyelitis: Pt is willing now to have amputation of the left foot. Discussed with Dr. Anjel Jones. Currently pending vascular consult for evaluation of his arterial blood supply to hopefully improve wound healing Pt already had vascular consult and angiogram on 04/24 will discuss tomorrow after MRI results what is the next option of treatment specifically now pt agrees with amputation. Continued Linezolid 600 mg PO BID as per ID recommendations. Monitor daily labs, replenish electrolytes as necessary. DVT ppx Heparin 5000 Q8 hr sc Full code (2) Cellulitis: as the above (3) DVT prophylaxis: Heparin 5000 units sc Q8 hr (4) Diabetic foot infection: as the above (5) Surgical wound, non healing: as the above (6) Diabetic foot ulcer associated with type 2 diabetes mellitus: as the above (7) PAD (peripheral artery disease): pt had extensive evaluation by vascular on 04/24 (8) Diabetes mellitus: Insulin 20 units in the morning 15 at night plus sliding scale (9) Seizure: stable, continue home dose of Phenytoin (10) Hyperlipidemia: stable , continue home dose of Simvastatin 40 mg PO Qhs (11) Hypertension: stable , continue home dose of Lisinopril 10 mg QD (12) Metabolic encephalopathy: continue monitoring daily blabs and diabetes mellitus. Subjective Patient is pleasantly content he is awaiting final decision on surgical correction of his chronic left foot osteomyelitis. The patient is pain controlled well Review of Systems Review of Systems: ROS: well nourished well developed. No double vision blurry vision No problems with speech or swallowing No palpitations, chest pain or pressure No Wheezing or breathing issues No abdominal pain nausea vomiting diarrhea changes in appetite or weight No burning urine urine frequency or changes in color Patient has some unusual sensation but no significant pain as he is neuropathy Healing wound on the heel aspect of his left foot No unusual bruising or bleeding No focused back pain or numbness or loss of strength No changes in memory or confusion Physical Exam Physical Exam: The patient appeared well nourished and normally developed. Vital signs as documented. Head exam is unremarkable. normocephalic, atraumatic Neck is without jugular venous distension, thyromegaly, or lymphademopathy Lungs are clear to auscultation and percussion. Cardiac exam reveals Rhythm is regular. First and second heart sounds normal. Abdominal exam reveals normal bowel sounds, no masses, no organomegaly Extremitie on the left there is a non-healed surgical scar with foul smell there is no drainage the tissue does appear to be feel though pulses are very weak in that lower extremity as previous angina grams of suggested significant reduction in arterial flow Neurologic exam is A&Ox3, patient has peripheral neuropathy from diabetes Psychologically seems neither anxious or depressed Results & Data Vital Signs (Past 12 Hours) Vital Signs Temp Pulse Pulse Resp BP BP Pulse Ox 07/02/19 07:55 36.8 C 85 18 122/77 92 07/02/19 04:00 36.7 C 88 18 130/69 93 07/02/19 01:30 91 H 07/02/19 00:30 88 106/63 95 07/01/19 23:34 37.2 C 90 20 111/61 94 PG Care Time/CCT Total # of Minutes Spent Total Time Spent with Patient: Total time spent is greater than 50% in coordination of care (as documented) at patient's floor/unit and/or counseling patient: (1) Hypertension Hypertension type: essential hypertension Qualified Code(s): I10 - Essential (primary) hypertension
--- NOTE | 2019-07-02 10:18 | Consultation ---
Date of Consultation July 02, 2019 Assessment & Plan (1) PAD (peripheral artery disease): Pt with known severe infrapopliteal artery disease not amenable to endovascular intervention. Pt discussed at length with Dr Patel. If orthopedics considering foot debridement/TMA, previous imaging indicated that a short bypass (SFA-Ant tib) may be possible for limb salvage, however, would need to weight risks vs benefits of open surgery. If orthopedics considering BKA vs AKA, then no vascular intervention necessary at this time. Will order arterial US to assess for possible changes in vascular status and make further recs after imaging. Patient was seen, examined, and chart reviewed. Agree with exam and treatment plan of the Vascular PA. Present on Admission?: Yes History of Present Illness Reason for Consultation: L foot nonhealing wound/ infected wound, PAD Attending Physician: Ralf Kendrick MD History of Present Illness 84 yo m with multiple medical problems, including PAD, DMII, hyperlipidemia, CKD, HTN, seizures, admitted with worsening infection of nonhealing LLE foot wound, seen in consultation today for recs regarding severe PAD in LLE and level of amputation. Pt is a very poor historian and is unable to tell how long he has had a wound to left foot. According to records, pt had longstanding L great toe ulceration that did not heal and eventually underwent L great toe amputation by Dr Mustafa in February 2019. D/T concerns for poor healing of wound, he then underwent LLE angio without intervention x2, which noted severe infrapopliteal disease that was not amenable to intervention. Pt was resistant to leg amputation and local wound care was continued. Pt now admitted with infection in LLE great toe amp wound. Pt mostly wheelchair bound at this point. Denies FINCH, fever, chills, chest pain, adb pain, N/V, rest pain, claudication, other complaints. Allergies Allergy/AdvReac Type Severity Reaction Status Date / Time Iodinated Contrast- Oral and Allergy Mild Verified 07/01/19 12:01 IV Dye Home Medications Home Medications Medication Instructions Recorded Confirmed Type phenytoin sodium extended 2 cap PO BID 11/02/18 07/01/19 History simvastatin 40 mg PO HS 11/02/18 07/01/19 History ascorbic acid (vitamin C) 500 mg 500 mg PO BID cap 02/05/19 07/01/19 History capsule Fleet Enema 1 dose KS DAILY PRN 03/08/19 07/01/19 History Levemir U-100 Insulin 15 unit SUBCUT HS 03/08/19 07/01/19 History Levemir U-100 Insulin 20 unit SUBCUT QAM 03/08/19 07/01/19 History Novolog U-100 Insulin aspart 8 unit SUBCUT QAM 03/08/19 07/01/19 History Novolog U-100 Insulin aspart 15 unit SUBCUT BID 03/08/19 07/01/19 History acetaminophen 2 tab PO Q6H PRN MDD 3 gms 03/08/19 07/01/19 History bisacodyl [Dulcolax (bisacodyl)] 10 mg KS DAILY PRN 03/08/19 07/01/19 History lisinopril 10 mg PO QAM 03/08/19 07/01/19 History magnesium hydroxide [Milk of 30 ml PO DAILY PRN 03/08/19 07/01/19 History Magnesia] multivitamin with minerals 1 tab PO QAM 03/08/19 07/01/19 History protein supplement 30 ml PO BID 03/08/19 07/01/19 History hydrocodone 5 mg-acetaminophen 325 1 tab PO Q6H PRN 04/16/19 07/01/19 History mg tablet hydrocodone-acetaminophen 1 tab PO BID 07/01/19 07/01/19 History insulin lispro [Humalog U-100 0 sliding scale dose SUBCUT UD 07/01/19 07/01/19 History Insulin] linezolid 600 mg PO BID 07/01/19 07/01/19 History sulfamethoxazole-trimethoprim 1 tab PO BID 07/01/19 07/01/19 History Patient History Medical History Osteomyelitis (Acute) Cellulitis (Acute) DVT prophylaxis Diabetic foot infection Surgical wound, non healing (Acute) Diabetic foot ulcer associated with type 2 diabetes mellitus (Acute) PAD (peripheral artery disease) Diabetes mellitus (Chronic) Hyperlipidemia (Chronic) Hypertension (Chronic) Metabolic encephalopathy (Resolved) Amputation of great toe, left, traumatic (Acute) Acute kidney failure with tubular necrosis (Chronic) Anemia, unspecified (Chronic) 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) Difficulty in walking, not elsewhere classified (Chronic) Dyslipidemia (Chronic) Dysphagia, oral phase (Chronic) Epilepsy, unspecified, not intractable, without status epilepticus (Chronic) Muscle weakness (generalized) (Chronic) Nontoxic simple goitre (Chronic) Syncope and collapse (Chronic) Compression fracture of T10 vertebra Dementia Diabetes Hypertension Metabolic acidosis Metabolic encephalopathy Neuropathy Osteomyelitis LEG (CURRENTLY GETTING IV ANTIBIOTICS) Rotator cuff tear arthropathy of right shoulder Seizure disorder Thyroid goiter RT SIDE Surgical History No pertinent past surgical history S/P PICC central line placement Family History Other FHx: cancer Social History Preferred Language: Kiswahili Communication Ability: Effective Chairman & Ceo Required: No Beliefs That Will Affect Care: None marital status: Single Current Living Situation: Residential Current Living Situation Comment: pt resident of [facility] Other Information That Helps Us Care for You: No Feels Safe at Home: Yes Safety Concerns: Feels Safe At This Time Smoking Status: Former smoker Tobacco Type: pipe and cigars ; Cigarettes Per Day: Smoked in the s ; Do You Dip or Chew Tobacco: No ; Smoking End Date: ; Second Hand Exposure: No ; Tobacco Cessation Education Requested by Patient: No Hx Alcohol Use: No Hx Substance Use: No Review of Systems Review of Systems: All systems reviewed & are unremarkable except as noted in HPI & below (difficult to obtain d/t poor historian) Physical Exam Constitutional: WD/WN, vitals as above well developed, well nourished, + ill appearing (mildly chronically), + obese, well groomed, + disheveled, cooperative and comfortable; not in distress and not combative Eyes: PERRL, conjunctivae normal, anicteric sclerae EOM intact bilaterally ENMT: Ears: no hearing impairment Nose: no nasal discharge Throat: no posterior oropharynx abnormality Neck: trachea midline, no thyromegaly no tracheal deviation, no neck crepitus and neck nontender Respiratory: able to speak in complete sentences; does not use accessory muscles and no cough Auscultation: lungs clear to auscultation bilaterally and + diminished lung sounds; no rhonchi and no wheezes Cardiovascular: Rate/Rhythm: regular rate and regular rhythm Heart Sounds: no gallop and no murmur Vessels: femoral pulses present, brachial pulses present and radial pulses present; no carotid bruit, no femoral bruit, + abnormal peripheral pulses, + posterior tibial pulses abnormal (nonpalpable BLE) and + dorsalis pedis pulses abnormal (nonpalpable BLE) Extremities: + edema (L foot); + abnormal capillary refill Chest (Breasts): Chest: normal inspection of chest Gastrointestinal (Abdomen): normal bowel sounds, soft, nontender, no hepatosplenomegaly Inspection/Auscultation: abdomen normal to inspection and normal bowel sounds; abdomen not distended Percussion/Palpation: abdomen soft; abdomen nontender, no guarding, abdomen not rigid and no abdominal mass Musculoskeletal: no cyanosis or clubbing, extremities motor strength 5/5 Head/Neck/Chest: normocephalic, head atraumatic and neck supple Extremities: extremities normal to inspection, strength 5/5 throughout and + amputation noted (l great toe); full ROM of extremities, no chronic stasis changes and no clubbing Skin: no rashes, warm and dry normal turgor, + ulcer (shallow with surrounding callus to R 2nd toe, dry) and + wound (L Great toe amp site w moderate malodorous discharge noted, see below); no rashes, no lesions, no induration, no excoriations and no mottling Trauma: no hematoma and no puncture small periwound eschar noted, with beefy wound bed. + local erythema, warmth, edema of foot Neurologic: moves all extremities and awake; no focal motor deficits and not confused Speech / Cognition: no expressive aphasia and no receptive aphasia Motor/Sensory: no tremor and no sensory deficit Cranial Nerves: EOM intact bilaterally, normal facial strength and tongue midline Gait: not gait assisted Psychiatric: Orientation: alert, oriented x 3 and cooperative Apperance: appropriately dressed and appeared stated age Affect: euthymic affect Thought Process: goal directed thought process, linear/logical thought process and clear/coherent thought process Cognition: recent memory grossly intact, remote memory grossly intact, attention grossly intact and language grossly intact Estimated Intelligence: average estimated intelligence Results & Data Vital Signs (Past 12 Hours) Vital Signs Temp Pulse Pulse Resp BP BP Pulse Ox 07/02/19 08:35 86 07/02/19 07:55 36.8 C 85 18 122/77 92 07/02/19 04:00 36.7 C 88 18 130/69 93 07/02/19 01:30 91 H 07/02/19 00:30 88 106/63 95 07/01/19 23:34 37.2 C 90 20 111/61 94
[2019-07-02 10:25] LABS: Creatinine Clr Calc Pharmacy 53.2 ml/min; Est GFR (African American) 76.8; Est GFR (Non-African American) 66.2
[2019-07-02] MEDS: SIMVASTATIN 40 MG TAB PO SCH (20:35)
[2019-07-03] MEDS: PIPERACILLIN/TAZOBACTAM 3.375 GM in DEXTROSE 5% 100 ML IV SCH ×3 (02:00→18:01)
[2019-07-03] MEDS: SODIUM CHLORIDE 0.9% 1000ML 1,000 ML IV SCH ×2 (05:31→18:01)
[2019-07-03] MEDS: HEPARIN SOD 5,000 UNIT/0.5 ML VIAL SQ SCH ×3 (05:32→21:16)
[2019-07-03 06:36] LABS: Hematocrit (blood only) 28.1 % (42-52); Hemoglobin 9.1 g/dL (14.0-18.0); Mean Corpuscular Hgb Conc 32.4 g/dL (32-36); Mean Corpuscular Volume 95.9 fL (80-100); Platelet Count 238 K/uL (130-400); RDW Coefficient of Variation 15.7 % (11.5-14.5); RDW Standard Deviation 55.3 fL (36.4-46.3); Red Blood Count 2.93 M/uL (4.7-6.1)
[2019-07-03 07:10] LABS: Creatinine Clr Calc Pharmacy 58.6 ml/min
[2019-07-03] MEDS: PHENYTOIN SODIUM ER 100 MG CAP PO SCH ×2 (07:56→21:13)
[2019-07-03] MEDS: CEROVITE ADV FORMULA TAB PO SCH (07:57)
[2019-07-03] MEDS: LISINOPRIL 10 MG TAB PO SCH (07:57)
[2019-07-03] MEDS: HYDROCODONE/ACETAMOPHEN 5/325MG TAB PO SCH ×2 (07:57→21:13)
[2019-07-03] MEDS: ASCORBIC ACID 500 MG TAB PO SCH ×2 (07:58→21:14)
[2019-07-03] MEDS: LINEZOLID 600 MG TAB PO SCH (07:58)
[2019-07-03] MEDS: INSULIN ASPART 100 UNITS/ML 3 ML PEN SC SCH ×4 (07:59→21:16)
[2019-07-03] MEDS: INSULIN DETEMIR FLEXPEN/FLEX TOUCH 100 UNITS/ML 3ML SC SCH ×2 (08:01→21:17)
[2019-07-03] MEDS: SIMVASTATIN 40 MG TAB PO SCH (21:14)
--- NOTE | 2019-07-03 21:42 | Hospitalist Progress Note ---
Date of Service July 03, 2019 Assessment & Plan (1) Osteomyelitis: Pt is willing now to have amputation of the left foot. Discussed with as he has had patient in the past. Patient will likely undergo procedure on Monday. No vascular intervention needed at this time as he requires a BKA. Continued Linezolid 600 mg PO BID as per ID recommendations. Monitor daily labs, replenish electrolytes as necessary. DVT ppx Heparin 5000 Q8 hr sc Full code Spent 35 minutes in management. This included discussion with consultants. (2) Cellulitis: as the above (3) DVT prophylaxis: Heparin 5000 units sc Q8 hr (4) Diabetic foot infection: as the above (5) Surgical wound, non healing: as the above (6) Diabetic foot ulcer associated with type 2 diabetes mellitus: as the above (7) PAD (peripheral artery disease): pt had extensive evaluation by vascular on 04/24 (8) Diabetes mellitus: Insulin 20 units in the morning 15 at night plus sliding scale (9) Seizure: stable, continue home dose of Phenytoin (10) Hyperlipidemia: stable , continue home dose of Simvastatin 40 mg PO Qhs (11) Hypertension: stable , continue home dose of Lisinopril 10 mg QD (12) Metabolic encephalopathy: continue monitoring daily blabs and diabetes mellitus. Subjective 84 yo male has no new complaints. He is accepting the likelihood that he will require a below knee amputation on his affected foot. He reports his pain is adequately controlled. Review of Systems Review of Systems: ROS: well nourished well developed. No double vision blurry vision No problems with speech or swallowing No palpitations, chest pain or pressure No Wheezing or breathing issues No abdominal pain nausea vomiting diarrhea changes in appetite or weight No burning urine urine frequency or changes in color Patient has some unusual sensation but no significant pain as he is neuropathy Healing wound on the heel aspect of his left foot No unusual bruising or bleeding No focused back pain or numbness or loss of strength No changes in memory or confusion Musculoskeletal: + swelling left foot swelling erythema and edema Physical Exam Physical Exam: The patient appeared well nourished and normally developed. Vital signs as documented. Head exam is unremarkable. normocephalic, atraumatic Neck is without jugular venous distension, thyromegaly, or lymphademopathy Lungs are clear to auscultation and percussion. Cardiac exam reveals Rhythm is regular. First and second heart sounds normal. Abdominal exam reveals normal bowel sounds, no masses, no organomegaly Extremities on the left there is a non-healed surgical scar with foul smell there is no drainage the tissue Neurologic exam is A&Ox3, patient has peripheral neuropathy from diabetes Psychologically seems neither anxious or depressed Results & Data Vital Signs (Past 12 Hours) Vital Signs Temp Pulse Pulse Resp BP BP Pulse Ox 07/03/19 19:28 36.6 C 79 18 135/71 93 07/03/19 19:00 78 07/03/19 14:44 36.8 C 74 16 122/69 93 07/03/19 11:21 36.8 C 99 H 18 112/70 91 PG Care Time/CCT Total # of Minutes Spent Total Time Spent with Patient: Total time spent is greater than 50% in coordination of care (as documented) at patient's floor/unit and/or counseling patient: (1) Hypertension Hypertension type: essential hypertension Qualified Code(s): I10 - Essential (primary) hypertension
[2019-07-04] MEDS: PIPERACILLIN/TAZOBACTAM 3.375 GM in DEXTROSE 5% 100 ML IV SCH ×3 (02:00→18:22)
[2019-07-04] MEDS: SODIUM CHLORIDE 0.9% 1000ML 1,000 ML IV SCH ×2 (06:00→19:30)
[2019-07-04] MEDS: HEPARIN SOD 5,000 UNIT/0.5 ML VIAL SQ SCH (06:00)
[2019-07-04] MEDS: CEROVITE ADV FORMULA TAB PO SCH (07:55)
[2019-07-04] MEDS: ASCORBIC ACID 500 MG TAB PO SCH ×2 (07:55→21:20)
[2019-07-04] MEDS: LISINOPRIL 10 MG TAB PO SCH (07:55)
[2019-07-04] MEDS: PHENYTOIN SODIUM ER 100 MG CAP PO SCH ×2 (07:55→21:20)
[2019-07-04] MEDS: HYDROCODONE/ACETAMOPHEN 5/325MG TAB PO SCH ×2 (07:56→21:20)
[2019-07-04] MEDS: INSULIN ASPART 100 UNITS/ML 3 ML PEN SC SCH ×4 (07:57→20:48)
[2019-07-04] MEDS: INSULIN DETEMIR FLEXPEN/FLEX TOUCH 100 UNITS/ML 3ML SC SCH ×2 (08:00→21:20)
[2019-07-04 08:08] LABS: Hematocrit (blood only) 29.6 % (42-52); Hemoglobin 9.7 g/dL (14.0-18.0); Mean Corpuscular Hgb Conc 32.8 g/dL (32-36); Mean Corpuscular Volume 94.9 fL (80-100); Platelet Count 268 K/uL (130-400); RDW Coefficient of Variation 15.6 % (11.5-14.5); RDW Standard Deviation 53.9 fL (36.4-46.3); Red Blood Count 3.12 M/uL (4.7-6.1); White Blood Count 7.13 K/uL (4.8-10.8)
[2019-07-04 08:42] LABS: Creatinine Clr Calc Pharmacy 64.4 ml/min; Est GFR (African American) 91.9; Est GFR (Non-African American) 79.3
--- NOTE | 2019-07-04 09:21 | Progress Note ---
DATE: 07/04/2019 SUBJECTIVE: An 84-year-old gentleman admitted with recurrent left lower extremity foot infections after previous great toe amputation done back in February. He continues to have persistent bouts of waxing and waning infection in his foot. He has been readmitted on antibiotics. No new complaints. In the past, he has refused higher level amputation, but now has apparently decided to agree to proceed. OBJECTIVE: VITAL SIGNS: Temperature 36.8. Vital signs stable. GENERAL: Shows an elderly male. He appears awake and alert and appropriate. EXTREMITIES: Examination of the left foot reveals an open wound over his great toe with minimal signs of healing. There is some slight purulence. Fairly mild cellulitis. Slight odor to it. LABORATORY DATA: His hemoglobin from yesterday was 9.1, hematocrit 28.1. ASSESSMENT: An 84-year-old gentleman with multiple medical comorbidities including diabetes, hypertension, stage III kidney disease, peripheral vascular disease, seizure disorder, elevated cholesterol, metabolic encephalopathy, status post a left great toe amputation back in February with wound dehiscence. He has had a thorough vascular examination and attempted at opening up his vessels in his leg unsuccessfully. He just does not have blood flow to heal any more distal amputations or incisions. We talked about treatment options with the patient today. Initially, he was saying he did not want to lose his foot and then eventually decided as it was not going to heal that he would like to proceed with further surgery. We talked about below-knee amputation, above-knee amputation, but I did tell him that above-knee amputation is certainly by far the most predictable operation to get him to heal, but certainly eliminates almost any likelihood of him walking and also more difficulties with balance, with sitting. He is really resistant to that and would like to just proceed with a below-knee amputation. I think most likely this will work as he has got pretty good collateral blood flow. I think any more distal amputation would be extremely unlikely to work. PLAN: After extensive discussion with the patient this morning, we are going to proceed with a below-knee amputation. The risks and benefits of this procedure were explained to the patient including, but not limited to, DVT, PE, , infection, neurological injury, vascular injury, bleeding problem, pain, limited range of motion, stiffness, failure to relieve the symptoms, incomplete relief of symptoms, need for further surgery in the future, persistent infection, etc. The patient understands and desires to proceed. Informed consent was obtained. We are going to plan on doing this tomorrow. He will need to stop his heparin. He can continue the antibiotics. Any orthopedic questions can be directed to me at [phone].
[2019-07-04] MEDS ORDERED: VANCOMYCIN CONSULT ACTIVE PRN (15:17)
--- NOTE | 2019-07-04 15:33 | Pharmacy Report ---
Pharmacy Abx Initial Consult - Date of Service July 04, 2019 - Pharmacy Dosing Scope Date of Consult: 07/04/19 Consultation requested by: Dr. Paola Azul Pharmacy is consulted to initiate Vancomycin IV dosing therapy, order appropriate labs and adjust drug dose/frequency. - Subjective The patient is a 84 year old M admitted on 07/01/19 15:45. - Objective Height: 5 ft 5 in Weight: 88.2 kg Vital Signs (Past 12hrs): Vital Signs Temp Pulse Pulse Resp BP BP Pulse Ox 07/04/19 14:52 36.9 C 70 18 147/78 H 96 07/04/19 11:38 36.7 C 79 20 142/76 H 94 07/04/19 09:08 79 07/04/19 06:57 36.8 C 78 17 164/68 H 94 07/04/19 03:57 36.8 C 83 19 135/57 L 94 Lab Results (24hrs): Laboratory Tests (24 Hours) 07/04/19 07/04/19 07:41 07:41 WBC 7.13 Creatinine 0.84 Est Cr Clr Drug Dosing 64.4 - Risk Factors for Resistance * Resident in a fpc or extended-care facility * History of infection with a multidrug-resistant organism - Assessment & Plan Assessment 84 year old M with recurrent lower left extremity foot infections Pt s/p great toe amputation 02/2019 Pt scheduled for BKA 07/05/19 --> vanco kinetics will change and dosing will need adjusted PO zyvox course completed and now MRSA coverage starting with vancomycin. Vanco to be continued x 72 hrs post BKA Plan Vancomycin IV * Estimated PK Parameters: Vd 0.6 L/kg, Arnold 0.050 hr-1, t1/2 13.9 hr these estimates will change after BKA * Loading dose: 2,250 mg (25 mg/kg) * Maintenance dose: 1,250 mg IV (14 mg/kg) every 16 hours * Goal trough level for bone/joint : 15 to 20 mcg/mL * No levels ordered at this time. Will re-evaluate dosing post-operatively Piperacillin/tazobactam * 4.5 g bolus administered over 30 minutes, then 3.375 g IV extended infusion every 8 hours for CrCl greater than 20 mL/min * Started on 07/01/19 Pharmacy will continue to follow and will adjust dose/frequency as necessary. Thank you.
[2019-07-04] MEDS ORDERED: VANCOMYCIN HCL 2,250 MG in SODIUM CHLORIDE 0.9% 500 ML IV ONE (16:00)
--- NOTE | 2019-07-04 16:47 | Anesthesiology Consultation ---
Date of Service July 04, 2019 Assessment & Plan Chart Review Chart Review: Acceptable Risk for Surgery and Patient NOT seen in Pre Admission Testing Patient has a type and screen from 07/03/2019. He is awake and alert per report so should be consentable DOS. Consults Requested none History Surgery Operation Date: 07/05/19 14:30 Proposed Procedures p Left Below Knee Amputation - Claus Mustafa MD Height/Weight Height: 5 ft 5 in Weight: 88.2 kg Allergies Allergy/AdvReac Type Severity Reaction Status Date / Time Iodinated Contrast- Oral and Allergy Mild Verified 07/01/19 12:01 IV Dye Medications Home Medications Medication Instructions Recorded Confirmed Last Taken phenytoin sodium extended 2 cap PO BID 11/02/18 07/01/19 07/01/19 08:30 simvastatin 40 mg PO HS 11/02/18 07/01/19 06/30/19 20:30 ascorbic acid (vitamin C) 500 mg 500 mg PO BID cap 02/05/19 07/01/19 07/01/19 08:30 capsule Fleet Enema 1 dose NE DAILY PRN 03/08/19 07/01/19 Unknown Levemir U-100 Insulin 15 unit SUBCUT HS 03/08/19 07/01/19 06/30/19 20:30 Levemir U-100 Insulin 20 unit SUBCUT [facility] 03/08/19 07/01/19 07/01/19 06:30 Novolog U-100 Insulin aspart 8 unit SUBCUT QAM 03/08/19 07/01/19 07/01/19 08:30 Novolog U-100 Insulin aspart 15 unit SUBCUT BID 03/08/19 07/01/19 06/30/19 16:30 acetaminophen 2 tab PO Q6H PRN MDD 3 gms 03/08/19 07/01/19 07/01/19 01:01 650mg bisacodyl [Dulcolax (bisacodyl)] 10 mg NE DAILY PRN 03/08/19 07/01/19 Unknown lisinopril 10 mg PO QAM 03/08/19 07/01/19 07/01/19 08:30 magnesium hydroxide [Milk of 30 ml PO DAILY PRN 03/08/19 07/01/19 Unknown Magnesia] multivitamin with minerals 1 tab PO QAM 03/08/19 07/01/19 07/01/19 protein supplement 30 ml PO BID 03/08/19 07/01/19 07/01/19 08:30 hydrocodone 5 mg-acetaminophen 325 1 tab PO Q6H PRN 04/16/19 07/01/19 06/28/19 05:28 mg tablet hydrocodone-acetaminophen 1 tab PO BID 07/01/19 07/01/19 07/01/19 08:30 insulin lispro [Humalog U-100 0 sliding scale dose SUBCUT UD 07/01/19 07/01/19 06/29/19 18:54 Insulin] 12 units linezolid 600 mg PO BID 07/01/19 07/01/19 06/29/19 16:30 sulfamethoxazole-trimethoprim 1 tab PO BID 07/01/19 07/01/19 07/01/19 08:30 Active Medications Generic Name Dose Route Start Last Admin Trade Name Freq PRN Reason Stop Dose Admin Hydrocodone Bitart/Acetaminophen 1 tab 07/01/19 21:00 07/04/19 07:56 Hymera 5/325 PO 07/15/19 20:59 1 tab BID ANAIS Administration Ascorbic Acid 500 mg 07/01/19 21:00 07/04/19 07:55 Vitamin C PO 07/31/19 20:59 500 mg BID ANAIS Administration Sodium Chloride 1,000 mls @ 80 mls/hr 07/01/19 16:36 07/04/19 06:00 Nss 1000ml IV 07/31/19 16:35 80 mls/hr .[id number] ANAIS Administration Piperacillin Sod/Tazobactam 115 mls @ 28.75 mls/hr 07/01/19 18:00 07/04/19 14:20 Sod 3.375 gm/ Dextrose IV 07/11/19 17:59 Infused Q8H ANAIS Infusion Protocol Vancomycin HCl 2,250 mg/ 545 mls @ 200 mls/hr 07/04/19 16:00 07/04/19 16:04 Sodium Chloride IV 07/04/19 18:43 200 mls/hr NOW ONE Administration Insulin Aspart 0 units 07/01/19 21:00 07/04/19 12:35 Novolog Flexpen SC 07/31/19 20:59 9 units ACHS ANAIS Administration Insulin Detemir 20 units 07/02/19 09:00 07/04/19 08:00 Levemir Flextouch SC 08/01/19 08:59 20 units QAM ANAIS Administration Insulin Detemir 15 units 07/01/19 21:00 07/03/19 21:17 Levemir Flextouch SC 07/31/19 20:59 15 units HS ANAIS Administration Lisinopril 10 mg 07/02/19 09:00 07/04/19 07:55 Zestril PO 08/01/19 08:59 10 mg QAM ANAIS Administration Multivitamins/Minerals 1 tab 07/02/19 09:00 07/04/19 07:55 Multivitamin W/ Minerals Tab PO 08/01/19 08:59 1 tab QAM ANAIS Administration Phenytoin Sodium 200 mg 07/01/19 21:00 07/04/19 07:55 Dilantin Er PO 07/31/19 20:59 200 mg BID ANAIS Administration Simvastatin 40 mg 07/01/19 21:00 07/03/19 21:14 Zocor PO 07/31/19 20:59 40 mg HS ANAIS Administration Past Medical History Medical History Osteomyelitis (Acute) Cellulitis (Acute) DVT prophylaxis Diabetic foot infection Surgical wound, non healing (Acute) Diabetic foot ulcer associated with type 2 diabetes mellitus (Acute) PAD (peripheral artery disease) Diabetes mellitus (Chronic) Hyperlipidemia (Chronic) Hypertension (Chronic) Metabolic encephalopathy (Resolved) Amputation of great toe, left, traumatic (Acute) Acute kidney failure with tubular necrosis (Chronic) Anemia, unspecified (Chronic) 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) Difficulty in walking, not elsewhere classified (Chronic) Dyslipidemia (Chronic) Dysphagia, oral phase (Chronic) Epilepsy, unspecified, not intractable, without status epilepticus (Chronic) Muscle weakness (generalized) (Chronic) Nontoxic simple goitre (Chronic) Compression fracture of T10 vertebra Dementia Diabetes Hypertension Metabolic acidosis Neuropathy Osteomyelitis LEG (CURRENTLY GETTING IV ANTIBIOTICS) Rotator cuff tear arthropathy of right shoulder Seizure disorder Syncope and collapse Thyroid goiter RT SIDE Past Family History Family History Other FHx: cancer Past Surgical History Surgical History No pertinent past surgical history S/P PICC central line placement Social History Smoking Status: Former smoker tobacco type: pipe and cigars Smoking cigarettes per day: Smoked in the Do You Dip or Chew Tobacco: No Smoking End Date: Hx Alcohol Use: No Alcohol type: beer alcohol intake frequency: holidays/special occasions only Hx Substance Use: No substance use type: does not use Physical Exam Vital Signs Last Vital Signs Temp 36.9 C 07/04/19 14:52 Pulse 70 07/04/19 14:52 Resp 18 07/04/19 14:52 BP 147/78 H 07/04/19 14:52 Pulse Ox 96 07/04/19 14:52 Testing Laboratory Results 07/04/19 07:41 07/04/19 07:41 PT 10.9 Seconds (9.0-12.0) 07/01/19 11:32 INR 1.1 (0.9-1.1) 07/01/19 11:32 APTT 31.3 Seconds (21.0-31.0) H 07/01/19 11:32 Blood Type A Positive 07/03/19 20:18 Antibody Screen NEGATIVE 07/03/19 20:18 07/01/19 12:41 Aerobic Blood Culture - Preliminary Blood No growth in Aerobic bottle after 48 hours. Anaerobic Blood Culture - Preliminary No growth in Anaerobic bottle after 48 hours. 07/01/19 12:05 Aerobic Blood Culture - Preliminary Blood No growth in Aerobic bottle after 48 hours. Anaerobic Blood Culture - Preliminary No growth in Anaerobic bottle after 48 hours. 07/04/19 07/04/19 07/04/19 16:29 11:31 07:36 POC Glucose 112 H 157 H 93 Electrocardiogram Date: 07/01/19 Findings: + NSR @ (89) Poor data quality, interpretation may be adversely affected Sinus rhythm with 1st degree A-V block with Premature supraventricular complexes and with occasional Premature ventricular complexes Left axis deviation Abnormal ECG When compared with ECG of 08-MAR-2019 10:23, Premature ventricular complexes are now Present Premature supraventricular complexes are now Present Confirmed by Ludwig Lang ([id number]) on 07/01/2019 5:13:57 PM
--- NOTE | 2019-07-04 17:09 | Hospitalist Progress Note ---
Date of Service July 04, 2019 Assessment & Plan (1) Osteomyelitis: Left foot extensive cellulitis/osteomyelitis Surgical consult appreciated Plan for below-knee amputation in a.m. Continue Zosyn FAVIO to for his MRSA was 1, switch Zyvox to Vanco. We will discuss with surgical team tomorrow the extent of the infection and the continuation of antibiotics to treat soft tissue of the amputation of the osteomyelitis (2) Cellulitis: as the above (3) DVT prophylaxis: Heparin 5000 units sc Q8 hr (4) Diabetic foot infection: as the above (5) Surgical wound, non healing: as the above (6) Diabetic foot ulcer associated with type 2 diabetes mellitus: as the above (7) PAD (peripheral artery disease): pt had extensive evaluation by vascular on 04/24 (8) Diabetes mellitus: Hold Lantus today as patient will be n.p.o. (9) Seizure: stable, continue home dose of Phenytoin (10) Hyperlipidemia: stable , continue home dose of Simvastatin 40 mg PO Qhs (11) Hypertension: Hold lisinopril in preparation of tomorrow's surgery (12) Metabolic encephalopathy: Improved, likely secondary to infection Subjective Appears to be calm He has no new complaint Waiting for surgery tomorrow Review of Systems Review of Systems: Review of system Constitutional: No fever / no chills / no sweats / no weakness / no fatigue Eyes: no blurring of vision / no eye pain / no discharge / no redness ENT: no hearing loss / no epistaxis /no swallowing problems Respiratory: no cough / no wheezing / no SOB / no hemoptysis Cardiovascular: no Chest pain / no lower extremity edema / no palpitation Abdomen: no pain / no nausea / no vomiting / no constipation Musculoskeletal: Foot pain and infection as below Genitourinary: no dysuria / no incontinence / no urinary retention Neurologic: no focal weakness / no numbness/tingling / no ataxia Psychiatric: no depression symptoms / no anxiety / no insomnia Endocrine: no excessive thirst / no excessive urination Hematologic: no abnormal bleeding / no bruising / no LN swelling Skin: No rash / no pallor Physical Exam Physical Exam: Physical examination General patient appears to be comfortable, not in acute distress HEENT: Atraumatic , normocephalic /no jaundice /no pallor /anicteric /no dry mucous membrane /normal external ear inspection Neck: Supple /no swelling /central trach Heart: S1/S2 normal/regular rate and rhythm/no gallop /no rub /no murmur Lungs: Clear to auscultation bilaterally/normal chest with expansion/no rhonchi/no rales/no wheezing/no use of accessory muscles of respiration Abdomen: Soft/nontender/no guarding/no rebound/no organomegaly/no pulsatile mass Musculoskeletal: Left foot swelling/erythema/wrapped with foul odor discharge Neuro exam: Awake alert oriented 3/cranial nerves II through XII appear to be intact/sensation intact/moves all extremities/no abnormal movements Psychiatric evaluation: No depressed mood/normal affect Skin: No rash on exposed skin area/no erythema Extremity: Normal pulse/no pitting edema/no clubbing or cyanosis Endocrine/lymphatic: No obvious lymphadenopathy /no lymphedema Results & Data Vital Signs (Past 12 Hours) Vital Signs Temp Pulse Pulse Resp BP BP Pulse Ox 07/04/19 14:52 36.9 C 70 18 147/78 H 96 07/04/19 11:38 36.7 C 79 20 142/76 H 94 07/04/19 09:08 79 07/04/19 06:57 36.8 C 78 17 164/68 H 94 PG Care Time/CCT Total # of Minutes Spent Total Time Spent with Patient: Total time spent is greater than 50% in coordination of care (as documented) at patient's floor/unit and/or counseling patient: (1) Hypertension Hypertension type: essential hypertension Qualified Code(s): I10 - Essential (primary) hypertension
[2019-07-04] MEDS: SIMVASTATIN 40 MG TAB PO SCH (21:20)
[2019-07-05] MEDS: PIPERACILLIN/TAZOBACTAM 3.375 GM in DEXTROSE 5% 100 ML IV SCH ×3 (01:54→18:45)
[2019-07-05 07:14] LABS: Hematocrit (blood only) 30.2 % (42-52); Hemoglobin 9.9 g/dL (14.0-18.0); Mean Corpuscular Hgb Conc 32.8 g/dL (32-36); Mean Corpuscular Volume 96.8 fL (80-100); Mean Platelet Volume 8.8 fL (7.4-10.4); Platelet Count 293 K/uL (130-400); RDW Coefficient of Variation 15.4 % (11.5-14.5); RDW Standard Deviation 54.6 fL (36.4-46.3); Red Blood Count 3.12 M/uL (4.7-6.1); White Blood Count 7.71 K/uL (4.8-10.8)
[2019-07-05 07:28] LABS: Partial Thromboplastin Ratio 1.1; Partial Thromboplastin Time 30.2 Seconds (21.0-31.0)
[2019-07-05] MEDS: SODIUM CHLORIDE 0.9% 1000ML 1,000 ML IV SCH ×2 (07:32→18:45)
[2019-07-05] MEDS: HYDROCODONE/ACETAMOPHEN 5/325MG TAB PO SCH ×2 (07:33→20:51)
[2019-07-05] MEDS: PHENYTOIN SODIUM ER 100 MG CAP PO SCH ×2 (07:34→20:03)
[2019-07-05] MEDS: CEROVITE ADV FORMULA TAB PO SCH (07:34)
[2019-07-05] MEDS: ASCORBIC ACID 500 MG TAB PO SCH ×2 (07:34→20:02)
[2019-07-05] MEDS: VANCOMYCIN HCL 1,250 MG in SODIUM CHLORIDE 0.9% 250 ML IV SCH ×2 (07:45→23:35)
[2019-07-05 07:46] LABS: BUN Creatinine Ratio 12.3 (10-20); Calcium 8.6 mg/dl (8.5-10.1); Creatinine Clr Calc Pharmacy 65.9 ml/min; Est GFR (African American) 92.8; Est GFR (Non-African American) 80.1; Potassium 4.1 mmol/L (3.5-5.1)
[2019-07-05] MEDS: INSULIN ASPART 100 UNITS/ML 3 ML PEN SC SCH ×5 (08:07→21:27)
[2019-07-05] MEDS: INSULIN DETEMIR FLEXPEN/FLEX TOUCH 100 UNITS/ML 3ML SC SCH ×2 (08:08→20:51)
--- NOTE | 2019-07-05 10:52 | Hospitalist Progress Note ---
Date of Service July 05, 2019 Assessment & Plan (1) Osteomyelitis: Left foot extensive cellulitis/osteomyelitis/gangrene Surgical consult appreciated Patient waiting for below-knee amputation this morning Continue Zosyn FAVIO to for his MRSA was 1, switch Zyvox to Vanco. Continue antibiotics per surgery Obtain labs in a.m. including BMP, LFTs, CBC, magnesium level, TSH (2) Cellulitis: as the above (3) DVT prophylaxis: Heparin 5000 units sc Q8 hr (4) Diabetic foot infection: as the above (5) Surgical wound, non healing: We will add nutritional supplement to promote healing after the surgery (6) Diabetic foot ulcer associated with type 2 diabetes mellitus: as the above (7) PAD (peripheral artery disease): pt had extensive evaluation by vascular on 04/24 (8) Diabetes mellitus: Keep holding Lantus today as patient will be n.p.o. Will restart Lantus after the surgery (9) Seizure: stable, continue home dose of Phenytoin (10) Hyperlipidemia: stable , continue home dose of Simvastatin 40 mg PO Qhs (11) Hypertension: Continue holding lisinopril (12) Metabolic encephalopathy: Improved, likely secondary to infection Subjective Appears to be calm He has no new complaint Ready for surgery this morning Review of Systems Review of Systems: Review of system Constitutional: No fever / no chills / no sweats / no weakness / no fatigue Eyes: no blurring of vision / no eye pain / no discharge / no redness ENT: no hearing loss / no epistaxis /no swallowing problems Respiratory: no cough / no wheezing / no SOB / no hemoptysis Cardiovascular: no Chest pain / no lower extremity edema / no palpitation Abdomen: no pain / no nausea / no vomiting / no constipation Musculoskeletal: Foot pain and infection as below Genitourinary: no dysuria / no incontinence / no urinary retention Neurologic: no focal weakness / no numbness/tingling / no ataxia Psychiatric: no depression symptoms / no anxiety / no insomnia Endocrine: no excessive thirst / no excessive urination Hematologic: no abnormal bleeding / no bruising / no LN swelling Skin: No rash / no pallor Musculoskeletal: + swelling left foot swelling erythema and edema Physical Exam Physical Exam: Physical examination General patient appears to be comfortable, not in acute distress HEENT: Atraumatic , normocephalic /no jaundice /no pallor /anicteric /no dry mucous membrane /normal external ear inspection Neck: Supple /no swelling /central trach Heart: S1/S2 normal/regular rate and rhythm/no gallop /no rub /no murmur Lungs: Clear to auscultation bilaterally/normal chest with expansion/no rhonchi/no rales/no wheezing/no use of accessory muscles of respiration Abdomen: Soft/nontender/no guarding/no rebound/no organomegaly/no pulsatile mass Musculoskeletal: Left lower extremity wrapped, has a very bad odor Neuro exam: Awake alert oriented 3/cranial nerves II through XII appear to be intact/sensation intact/moves all extremities/no abnormal movements Psychiatric evaluation: No depressed mood/normal affect Skin: No rash on exposed skin area/no erythema Extremity: Normal pulse/no pitting edema/no clubbing or cyanosis Endocrine/lymphatic: No obvious lymphadenopathy /no lymphedema Results & Data Vital Signs (Past 12 Hours) Vital Signs Temp Pulse Pulse Resp BP BP Pulse Ox 07/05/19 09:54 36.2 C L 87 17 153/77 H 93 07/05/19 06:38 36.9 C 91 H 20 130/74 92 07/05/19 03:32 37.0 C 84 19 149/77 H 92 07/05/19 00:40 78 07/04/19 23:29 37.1 C 82 20 127/80 94 PG Care Time/CCT Total # of Minutes Spent Total Time Spent with Patient: 35 minutes total time spent is greater than 50% in coordination of care (as documented) at patient's floor/unit and/or counseling patient/family discussion of care with nursing staff (1) Hypertension Hypertension type: essential hypertension Qualified Code(s): I10 - Essential (primary) hypertension
[2019-07-05] MEDS ORDERED: Nursing to Pharmacy Communication ONE ×2 (10:57→20:35)
[2019-07-05] MEDS ORDERED: PROPOFOL IV EMULSION 10 MG/ML 20 ML VIAL IV ONE ×3 (13:57→15:59)
[2019-07-05] MEDS ORDERED: LIDOCAINE HCL 2% 2 ML VIAL/AMP(20MG/ML) INFIL ONE (13:57)
[2019-07-05] MEDS ORDERED: fentaNYL citrate 100 MCG/2 ML VIAL ONE (13:57)
[2019-07-05] MEDS ORDERED: BACITRACIN INJ 50,000 UNIT VIAL ONE (14:22)
[2019-07-05] MEDS ORDERED: BUPIVACAINE/EPINEPHRINE 0.5% MPF 1:200,000 30 ML VIAL ONE (14:22)
--- NOTE | 2019-07-05 14:28 | History & Physical Bridge Note ---
Date of Service July 05, 2019 History & Physical Bridge Note I have examined the patient, reviewed the History & Physical and in the interval since the performance of the History & Physical I have noted the following changes of clinical significance: no changes noted
[2019-07-05] MEDS ORDERED: MIDAZOLAM HCL 1 MG/ML 2ML VIAL ONE (14:39)
[2019-07-05] MEDS ORDERED: ATROPINE SULFATE 0.1 MG/ML 10ML SYR IV PRN (14:52)
[2019-07-05] MEDS ORDERED: ePHEDrine sulfate 50 MG/ML AMP IV PRN (14:52)
[2019-07-05] MEDS ORDERED: PHENYLEPHRINE 100MCG/ML 5ML SYR IV PRN (14:52)
[2019-07-05] MEDS ORDERED: ONDANSETRON INJ 2 MG/ML 2 ML VIAL IV PRN ×2 (14:52→17:49)
[2019-07-05] MEDS ORDERED: fentaNYL citrate 100 MCG/2 ML VIAL IV PRN (14:52)
[2019-07-05] MEDS ORDERED: CEFAZOLIN 250 MG/ML 1 GM VIAL ONE (14:57)
[2019-07-05] MEDS ORDERED: LACTATED RINGER'S 1,000 ML IV SCH (15:00)
--- NOTE | 2019-07-05 16:39 | Post Operative Brief Note ---
PG Immediate Post Op with CF Date of Surgery July 05, 2019 Pre & Post Diagnosis Operation Date: 07/05/19 14:30 Pre-Op Diagnosis: Left Leg Osteomyelitis Post-Op Diagnosis: Left Leg Osteomyelitis Procedure Operation Date: 07/05/19 14:30 Actual Procedures p Left Leg Below the Knee Amputation(Left) - Claus Mustafa MD Surgeon Claus Mustafa MD Bill Collector Dc, PAC Estimated Blood Loss 100 Findings Consistent with Post-Op Diagnosis Fluids 1000 cc Specimens Specimen Description: A. Left Leg Below the Knee Amputation Drains Betts Catheter (A 16 Portuguese betts catheter was inserted by MYRA Henriquez, without difficulty, clear yellow urine obtained, output to be monitored by Anesthesia.) Anesthesia Type Spinal MAC Complications none Disposition Accompanied Patient To Recovery: Yes Disposition: Recovery Room
--- NOTE | 2019-07-05 17:06 | Anesthesiology Progress Note ---
Date of Service July 05, 2019 Anesthesia Post Procedure Vital Signs Vital Signs: Temp Pulse Pulse Pulse Resp BP BP 07/05/19 17:00 87 20 138/70 07/05/19 16:50 89 19 128/68 07/05/19 16:40 36.3 C L 93 H 18 110/70 07/05/19 14:32 36.7 C 94 H 18 137/96 07/05/19 11:13 36.7 C 88 19 141/80 H 07/05/19 09:54 36.2 C L 87 17 153/77 H 07/05/19 06:38 36.9 C 91 H 20 130/74 07/05/19 03:32 37.0 C 84 19 149/77 H 07/05/19 00:40 78 07/04/19 23:29 37.1 C 82 20 127/80 07/04/19 22:05 81 07/04/19 19:00 36.8 C 83 18 129/69 Pulse Ox 07/05/19 17:00 99 07/05/19 16:50 98 07/05/19 16:40 92 07/05/19 14:32 93 07/05/19 11:13 93 07/05/19 09:54 93 07/05/19 06:38 92 07/05/19 03:32 92 07/05/19 00:40 07/04/19 23:29 94 07/04/19 22:05 07/04/19 19:00 95 Transfer of Care Handoff Completed per policy Notes Mental Status: alert / awake / arousable Patient Amnestic to Procedure: Yes Nausea / Vomiting: adequately controlled Pain: adequately controlled Airway Patency, RR, SpO2: stable & adequate BP & HR: stable & adequate Hydration State: stable & adequate Anesthetic Complications: no major complications apparent
[2019-07-05] MEDS ORDERED: MAGNESIUM HYDROXIDE SUSP 30 ML UDC PO PRN (17:49)
[2019-07-05] MEDS ORDERED: TAMSULOSIN HCL 0.4 MG CAP PO PRN (17:49)
[2019-07-05] MEDS ORDERED: ASCORBIC ACID 500 MG TAB PO SCH (17:49)
[2019-07-05] MEDS ORDERED: NALOXONE HCL 0.4 MG/1 ML VIAL/CARP IV PRN (17:49)
[2019-07-05] MEDS ORDERED: ALUMINUM/MAGNESIUM SUSP 30 ML UDC PO PRN (17:49)
[2019-07-05] MEDS ORDERED: METOCLOPRAMIDE HCL INJ 5 MG/ML 2 ML VIAL IV PRN (17:49)
[2019-07-05] MEDS ORDERED: BISACODYL 10 MG SUPP PR PRN (17:49)
[2019-07-05] MEDS: SIMVASTATIN 40 MG TAB PO SCH (20:02)
[2019-07-05] MEDS: SENNA 8.6 MG TAB PO SCH (20:02)
[2019-07-05] MEDS: ASPIRIN 81 MG ECTAB PO SCH (20:03)
[2019-07-05] MEDS: DOCUSATE SODIUM 100 MG CAP PO SCH (20:04)
[2019-07-05] MEDS: FERROUS GLUCONATE 324 MG TAB PO SCH (20:04)
[2019-07-06] MEDS: PIPERACILLIN/TAZOBACTAM 3.375 GM in DEXTROSE 5% 100 ML IV SCH ×3 (01:14→17:20)
--- NOTE | 2019-07-06 03:25 | Operative Report ---
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 POSTOPERATIVE DIAGNOSES: Left ischemic leg with chronic osteomyelitis of the forefoot and necrosis of the lateral foot. PROCEDURE PERFORMED: Left below knee amputation. COMPLICATIONS: None. ESTIMATED BLOOD LOSS: 100 mL. FLUID REPLACEMENT: 1000 mL crystalloid fluid replacement. TOURNIQUET TIME: 48 minutes at 300 mmHg. ANESTHESIA: Spinal. SPECIMENS: Left leg sent for pathology. OPERATIVE INDICATIONS: The patient is an 84-year-old gentleman who has had a long history of vascular disease in his lower extremities. He developed an ischemic necrotic infected great toe and had amputation done about 4 months ago. He initially healed the wound up and looked pretty good and then the wound about a month or so postoperatively started to dehisce and opened back up. He has undergone routine wound care and has developed progressive infection. He has been managed at wound clinic. We talked about below knee amputation in the past and he refused. He has continued to be on suppressive antibiotics. He has now developed an eschar on the lateral side of his foot due to ischemia. He went through extensive vascular evaluation with attempt at opening up his vessels which were unsuccessful. The patient now reluctantly proceeds with below knee amputation. We did discuss with him above-knee amputation. We told him that was more predictable operation, but he refused. We will proceed with left [id number] amputation. OPERATIVE PROCEDURE: The patient was taken to the operating room, identified and placed on the Operating Room table in supine position. All contact areas were appropriately padded. The patient had received I.V. vancomycin earlier in the day. We did give him 2 g of Ancef. He received a spinal anesthetic in the holding area. A [place] catheter was placed in sterile fashion. Left thigh tourniquet was then placed and left lower extremity was then scrubbed with Hibiclens and then prepped with ChloraPrep and then draped in the usual sterile fashion. Left leg was elevated and exsanguinated with Esmarch and tourniquet was placed at 300 mmHg. An ischemic leg [id number] amputation incision was then fashioned over the leg. We planned a bone cut about 10 cm distal to the tibial joint line. The anterior flap was fairly short with a long posterior flap. Sharp dissection was carried through the subcutaneous tissue directly down onto the fascia. The anterior flap was elevated just about a centimeter off the tibia. A posterior flap was cut full thickness through the superficial posterior compartment into the deep compartment. I then sectioned the anterior compartment musculature about a half a centimeter distal to the osteotomy cut and allowed it to retract. The tibial osteotomy cut was then made and I did bevel the anterior surface to avoid pressure areas. The lateral muscles were also cut and allowed to retract. The fibula was identified and the fibula was then cut about a centimeter proximal to the tibial cut. I then identified the anterior tibial vessels and suture ligated them. The posterior vessels were then isolated and ligated as well with 2-0 silk ties. The tibial nerve was identified, traction was applied and it was cut and allowed to retract. I then removed the leg and left the deep posterior and the superficial posterior compartment attached to the posterior flap. The leg was then handed off. I then sectioned the deep posterior compartment and allowed it to retract. I then used the amputation knife to thin out the superficial posterior compartment to allow closure. I then irrigated the wound extensively. The tourniquet was then let down for a tourniquet time 48 minutes. Hemostasis was assured using electrocautery. The fascia of the posterior compartment was then repaired to the anterior fascia with #1 Vicryl suture in [id number] fashion. The skin was then closed with a combination of 2-0 and 3-0 nylon suture in a simple fashion. Leg was then cleaned and dried and a sterile dressing with Xeroform, 4 x 4, sterile cast padding and Silvestre bandage were applied. The patient was then transferred to the recovery room in a stable condition. The patient tolerated the procedure well with no complication. All needle and sponge counts were correct at the end of the operation. The tourniquet was let down after the leg was handed off and all major vessels were ligated. Hemostasis was assured with use of electrocautery and we assured hemostasis before beginning closure. I attest to the content of the Intraoperative Record and any orders documented therein. Any exception s are noted below.
[2019-07-06] MEDS: SODIUM CHLORIDE 0.9% 1000ML 1,000 ML IV SCH (03:38)
[2019-07-06 07:55] LABS: Basophils # (auto) 0.02 K/uL (0-0.2); Basophils % (auto) 0.2 %; Eosinophils # (auto) 0.12 K/uL (0-0.5); Eosinophils % (auto) 1.4 %; Hematocrit (blood only) 31.3 % (42-52); Hemoglobin 10.5 g/dL (14.0-18.0); Immature Granulocytes # (auto) 0.04 K/uL (0.00-0.02); Immature Granulocytes % (auto) 0.5 %; Lymphocytes # (auto) 1.24 K/uL (1.2-3.4); Mean Platelet Volume 8.5 fL (7.4-10.4); Monocytes % (auto) 11.3 %; Neutrophils # (auto) 6.46 K/uL (1.4-6.5); Neutrophils % (auto) 72.6 %; Platelet Count 319 K/uL (130-400); RDW Coefficient of Variation 14.8 % (11.5-14.5); RDW Standard Deviation 50.9 fL (36.4-46.3); Red Blood Count 3.33 M/uL (4.7-6.1); White Blood Count 8.88 K/uL (4.8-10.8)
[2019-07-06 08:01] LABS: Mean Corpuscular Hgb Conc 33.5 g/dL (32-36)
[2019-07-06 08:12] LABS: Partial Thromboplastin Ratio 1.1; Partial Thromboplastin Time 30.5 Seconds (21.0-31.0)
[2019-07-06 08:27] LABS: Albumin Level 2.3 gm/dl (3.4-5.0); BUN Creatinine Ratio 10.7 (10-20); Calcium 8.8 mg/dl (8.5-10.1); Creatinine Clr Calc Pharmacy 57.5 ml/min; Est GFR (African American) 84.7; Est GFR (Non-African American) 73.1; Magnesium 1.5 mg/dl (1.8-2.4)
[2019-07-06 08:38] LABS: Albumin Globulin Ratio 0.5 (0.9-2); Bilirubin,Total 0.3 mg/dl (0.2-1); Globulin 4.4 gm/dl (2.5-4.0); Total Protein 6.7 gm/dl (6.4-8.2)
[2019-07-06] MEDS: PHENYTOIN SODIUM ER 100 MG CAP PO SCH ×2 (08:47→20:41)
[2019-07-06] MEDS: CEROVITE ADV FORMULA TAB PO SCH (08:47)
[2019-07-06] MEDS: ASCORBIC ACID 500 MG TAB PO SCH ×2 (08:47→20:42)
[2019-07-06] MEDS: FERROUS GLUCONATE 324 MG TAB PO SCH ×2 (08:47→17:26)
[2019-07-06] MEDS: ASPIRIN 81 MG ECTAB PO SCH ×2 (08:47→20:43)
[2019-07-06] MEDS: HYDROCODONE/ACETAMOPHEN 5/325MG TAB PO SCH ×2 (08:48→20:41)
[2019-07-06] MEDS: DOCUSATE SODIUM 100 MG CAP PO SCH ×2 (08:48→20:41)
[2019-07-06] MEDS: INSULIN ASPART 100 UNITS/ML 3 ML PEN SC SCH ×4 (08:52→20:39)
[2019-07-06] MEDS: LISINOPRIL 10 MG TAB PO SCH (08:56)
[2019-07-06] MEDS ORDERED: MULTIVITAMIN TAB PO SCH (09:00)
--- NOTE | 2019-07-06 09:05 | Progress Note ---
DATE: 07/06/2019 SUBJECTIVE: An 84-year-old gentleman with pretty significant diabetes and peripheral vascular disease, postop day 1 from a left below knee amputation. He is doing pretty well. He denies any significant pain this morning. No new complaints. OBJECTIVE: VITAL SIGNS: Temperature 36.8. Vital signs stable. GENERAL: Shows a pleasant elderly male. He is lying in bed, looks pretty comfortable. EXTREMITIES: Examination of left lower extremity reveals the dressing to be clean, dry and intact. There is no significant drainage. He can do a straight leg raise. LABORATORY DATA: Pending. ASSESSMENT: An 84-year-old gentleman with multiple medical comorbidities postop day 1 from a left below knee amputation for chronic lower extremity wounds and ischemic leg. Seems to be doing well. His pain is controlled. PLAN: From the Orthopedic standpoint, we would like to treat him with 24 hours of postoperative antibiotics. After that, all antibiotics can be stopped. We are going to leave this bandage on for 2 weeks. After 24 hours of antibiotics, he is okay for discharge from our standpoint. I need to see him back 2 weeks out from surgery. Really not much more to do from the Orthopedic standpoint. Once again 24 hours of postoperative antibiotics and then just leave the dressing in place. Any Orthopedic questions can be directed to me at [phone]. We would recommend DVT prophylaxis including TEDs, SCDs, and baby aspirin twice a day. MTDD
[2019-07-06] MEDS: ACETAMINOPHEN 325 MG TAB PO PRN ×2 (10:24→22:25)
[2019-07-06] MEDS ORDERED: INSULIN DETEMIR FLEXPEN/FLEX TOUCH 100 UNITS/ML 3ML SC SCH (12:15)
[2019-07-06] MEDS: INSULIN DETEMIR FLEXPEN/FLEX TOUCH 100 UNITS/ML 3ML SC SCH ×3 (12:16→20:40)
--- NOTE | 2019-07-06 16:28 | Hospitalist Progress Note ---
Date of Service July 06, 2019 Assessment & Plan (1) Osteomyelitis: Left foot extensive cellulitis/osteomyelitis/gangrene Surgical consult appreciated Postoperative day 1 status post below-knee amputation Tolerated procedure well with minimal blood loss Needed Zosyn/Vanco x 24 hours Obtain labs in a.m. including BMP, LFTs, CBC (2) Cellulitis: as the above (3) DVT prophylaxis: Heparin 5000 units sc Q8 hr (4) Diabetic foot infection: as the above (5) Surgical wound, non healing: We will add nutritional supplement to promote healing after the surgery (6) Diabetic foot ulcer associated with type 2 diabetes mellitus: as the above (7) PAD (peripheral artery disease): pt had extensive evaluation by vascular on 04/24 (8) Diabetes mellitus: Keep holding Lantus today as patient will be n.p.o. Started Lantus on a lower dose 10 units twice daily for now When patient start taking sufficient oral intake, will place his Lantus dose to its prior to admission range (9) Seizure: stable, continue home dose of Phenytoin (10) Hyperlipidemia: stable , continue home dose of Simvastatin 40 mg PO Qhs (11) Hypertension: Restart lisinopril Blood pressure has been slightly elevated (12) Metabolic encephalopathy: Improved, likely secondary to infection Subjective Doing well no new complaint Tolerated the procedure well Review of Systems Review of Systems: Review of system Constitutional: No fever / no chills / no sweats / no weakness / no fatigue Eyes: no blurring of vision / no eye pain / no discharge / no redness ENT: no hearing loss / no epistaxis /no swallowing problems Respiratory: no cough / no wheezing / no SOB / no hemoptysis Cardiovascular: no Chest pain / no lower extremity edema / no palpitation Abdomen: no pain / no nausea / no vomiting / no constipation Musculoskeletal: Left below-knee amputation stump wrapped, well-tolerated Genitourinary: no dysuria / no incontinence / no urinary retention Neurologic: no focal weakness / no numbness/tingling / no ataxia Psychiatric: no depression symptoms / no anxiety / no insomnia Endocrine: no excessive thirst / no excessive urination Hematologic: no abnormal bleeding / no bruising / no LN swelling Skin: No rash / no pallor Physical Exam Physical Exam: Physical examination General patient appears to be comfortable, not in acute distress HEENT: Atraumatic , normocephalic /no jaundice /no pallor /anicteric /no dry m ucous membrane /normal external ear inspection Neck: Supple /no swelling /central trach Heart: S1/S2 normal/regular rate and rhythm/no gallop /no rub /no murmur Lungs: Clear to auscultation bilaterally/normal chest with expansion/no rhonchi/no rales/no wheezing/no use of accessory muscles of respiration Abdomen: Soft/nontender/no guarding/no rebound/no organomegaly/no pulsatile mass Musculoskeletal: Left lower extremity stump appears to be normal, currently wrapped with dressing Neuro exam: Awake alert oriented 3/cranial nerves II through XII appear to be intact/sensation intact/moves all extremities/no abnormal movements Psychiatric evaluation: No depressed mood/normal affect Skin: No rash on exposed skin area/no erythema Extremity: Normal pulse/no pitting edema/no clubbing or cyanosis Endocrine/lymphatic: No obvious lymphadenopathy /no lymphedema Results & Data Vital Signs (Past 12 Hours) Vital Signs Temp Pulse Pulse Resp BP BP Pulse Ox 07/06/19 15:16 36.5 C 105 H 20 131/76 93 07/06/19 12:21 36.6 C 102 H 20 145/76 H 92 07/06/19 06:00 36.8 C 101 H 20 174/78 H 93 PG Care Time/CCT Total # of Minutes Spent Total Time Spent with Patient: 35 minutes total time spent is greater than 50% in coordination of care (as documented) at patient's floor/unit and/or counseling patient/family discussion of care with nursing staff (1) Hypertension Hypertension type: essential hypertension Qualified Code(s): I10 - Essential (primary) hypertension
[2019-07-06] MEDS: VANCOMYCIN HCL 1,250 MG in SODIUM CHLORIDE 0.9% 250 ML IV SCH (16:45)
[2019-07-06 17:13] LABS: Ferritin 56.4 ng/ml (8-388)
[2019-07-06 17:47] LABS: Folate (Folic Acid) 15.64 ng/ml (>5.38)
[2019-07-06] MEDS: SIMVASTATIN 40 MG TAB PO SCH (20:41)
[2019-07-06] MEDS: SENNA 8.6 MG TAB PO SCH (20:42)
[2019-07-06] MEDS: HYDROmorphone INJ 0.5 MG/0.5 ML SYR IV PRN (21:30)
[2019-07-07] MEDS: HYDROmorphone INJ 0.5 MG/0.5 ML SYR IV PRN ×3 (01:15→12:34)
[2019-07-07] MEDS: PIPERACILLIN/TAZOBACTAM 3.375 GM in DEXTROSE 5% 100 ML IV SCH ×2 (01:15→10:12)
[2019-07-07] MEDS ORDERED: VANCOMYCIN TROUGH ONE (07:30)
[2019-07-07 07:40] LABS: Hemoglobin 9.7 g/dL (14.0-18.0); Mean Corpuscular Hgb Conc 33.4 g/dL (32-36); Mean Corpuscular Volume 93.2 fL (80-100); Mean Platelet Volume 8.3 fL (7.4-10.4); Platelet Count 321 K/uL (130-400); RDW Coefficient of Variation 15.2 % (11.5-14.5); RDW Standard Deviation 51.9 fL (36.4-46.3); Red Blood Count 3.11 M/uL (4.7-6.1); White Blood Count 9.53 K/uL (4.8-10.8)
[2019-07-07 07:55] LABS: Partial Thromboplastin Ratio 1.2; Partial Thromboplastin Time 31.6 Seconds (21.0-31.0)
[2019-07-07 08:13] LABS: BUN Creatinine Ratio 13.5 (10-20); Calcium 8.6 mg/dl (8.5-10.1); Creatinine Clr Calc Pharmacy 55.3 ml/min; Est GFR (African American) 81.6; Est GFR (Non-African American) 70.4; Potassium 3.9 mmol/L (3.5-5.1)
[2019-07-07] MEDS: VANCOMYCIN HCL 1,250 MG in SODIUM CHLORIDE 0.9% 250 ML IV SCH (08:14)
[2019-07-07] MEDS: HYDROCODONE/ACETAMOPHEN 5/325MG TAB PO SCH ×2 (08:15→20:27)
[2019-07-07] MEDS: DOCUSATE SODIUM 100 MG CAP PO SCH ×2 (08:16→20:27)
[2019-07-07] MEDS: LISINOPRIL 10 MG TAB PO SCH (08:16)
[2019-07-07] MEDS: CEROVITE ADV FORMULA TAB PO SCH (08:16)
[2019-07-07] MEDS: PHENYTOIN SODIUM ER 100 MG CAP PO SCH ×2 (08:16→20:27)
[2019-07-07] MEDS: FERROUS GLUCONATE 324 MG TAB PO SCH ×2 (08:16→17:42)
[2019-07-07] MEDS: ASCORBIC ACID 500 MG TAB PO SCH ×2 (08:17→20:28)
[2019-07-07] MEDS: INSULIN DETEMIR FLEXPEN/FLEX TOUCH 100 UNITS/ML 3ML SC SCH ×2 (08:26→20:31)
[2019-07-07] MEDS: INSULIN ASPART 100 UNITS/ML 3 ML PEN SC SCH ×4 (08:28→20:30)
--- NOTE | 2019-07-07 08:38 | Progress Note ---
DATE: 07/07/2019 SUBJECTIVE: An 84-year-old gentleman postop day #2 from a left below-knee amputation for chronic ischemia and infection. He is doing okay. No new complaints. His pain is a bit worse today. OBJECTIVE: VITAL SIGNS: Temperature 37.0. Vital signs stable. GENERAL: Shows a pleasant elderly male. He is lying in bed, looks pretty comfortable. EXTREMITIES: Examination of the left leg reveals the dressing to be clean, dry and intact. No signs of problems. LABORATORY DATA: Hemoglobin 9.7. Hematocrit 29.0. Electrolytes are stable. ASSESSMENT: An 84-year-old gentleman postop day #2 from a left below-knee amputation for chronic ischemia and infection. He is doing okay. Pain is controlled. He has been anemic, but stable without symptoms. PLAN: 1. DVT prophylaxis including thigh-high TEDs, SCDs, and we would recommend a baby aspirin twice a day. 2. PT/OT. Just needs to work on transfers. Really nonweightbearing on this left leg. 3. Wound care. We are going to just leave this dressing in place and I will see him back in 2 weeks. 4. Antibiotics. He does not need any further antibiotics. 24 hours of postoperative antibiotics and that is all he needs. Infection is gone. No need for further antibiotics. 5. Disposition: He is orthopedically stable and acceptable for discharge any time when medically stable and a facility is available. [facility]
[2019-07-07] MEDS: ASPIRIN 81 MG ECTAB PO SCH ×2 (10:12→20:28)
--- NOTE | 2019-07-07 15:48 | Pharmacy Report ---
Pharmacy Abx Dose Short Note - Date of Service July 07, 2019 - Assessment & Plan Assessment 84 year old M receiving Vancomycin for treatment of possible Osteomyelitis. Patuent is now s/p L BKA d/t chronic infection. Today is post op day 2. Day # 4 of antimicrobial therapy. Plan Vancomycin * A trough level was obtained today before Vanco dose at 0800 after 3 maintenance doses. Level should be at steady state. * Trough level of 14.3 mcg/mL is subtherapeutic for Osteomyelitis. * Goal trough level for Osteo: 15 to 20 mcg/mL. * Vanco dose was increased to 1250 mg IV every 14 hours * Trough level ordered for: 07/09/19 before dose at 0200 AM. Pharmacy will continue to follow and will adjust dose/frequency as necessary. Thank you.
--- NOTE | 2019-07-07 17:38 | Hospitalist Progress Note ---
Date of Service July 07, 2019 Assessment & Plan (1) Osteomyelitis: Left foot extensive cellulitis/osteomyelitis/gangrene Surgical consult appreciated Postoperative day 2 status post below-knee amputation Tolerated procedure well with minimal blood loss Needed Zosyn/Vanco x 24 hours Currently discontinued all antibiotics, Dr. Mustafa is confident that all infection was cut out and margin pathology will be clear. Obtain labs in a.m. including BMP, LFTs, CBC Unfortunately was too confused yesterday to participate in physical therapy and Occupational Therapy. Physical therapy and Occupational Therapy will reevaluate him tomorrow, most likely will need placement in a rehab facility. (2) Cellulitis: as the above (3) DVT prophylaxis: Heparin 5000 units sc Q8 hr (4) Diabetic foot infection: as the above (5) Surgical wound, non healing: We will add nutritional supplement to promote healing after the surgery (6) Diabetic foot ulcer associated with type 2 diabetes mellitus: as the above (7) PAD (peripheral artery disease): pt had extensive evaluation by vascular on 04/24 (8) Diabetes mellitus: Keep holding Lantus today as patient will be n.p.o. Started Lantus on a lower dose 10 units twice daily for now When patient start taking sufficient oral intake, will place his Lantus dose to its prior to admission range (9) Seizure: stable, continue home dose of Phenytoin (10) Hyperlipidemia: stable , continue home dose of Simvastatin 40 mg PO Qhs (11) Hypertension: Restart lisinopril Blood pressure has been slightly elevated (12) Metabolic encephalopathy: Improved, likely secondary to infection Subjective Doing well no new complaint Less confused today Review of Systems Review of Systems: Review of system Constitutional: No fever / no chills / no sweats / no weakness / no fatigue Eyes: no blurring of vision / no eye pain / no discharge / no redness ENT: no hearing loss / no epistaxis /no swallowing problems Respiratory: no cough / no wheezing / no SOB / no hemoptysis Cardiovascular: no Chest pain / no lower extremity edema / no palpitation Abdomen: no pain / no nausea / no vomiting / no constipation Musculoskeletal: Left below-knee amputation stump wrapped, well-tolerated Genitourinary: no dysuria / no incontinence / no urinary retention Neurologic: no focal weakness / no numbness/tingling / no ataxia Psychiatric: no depression symptoms / no anxiety / no insomnia Endocrine: no excessive thirst / no excessive urination Hematologic: no abnormal bleeding / no bruising / no LN swelling Skin: No rash / no pallor Results & Data Vital Signs (Past 12 Hours) Vital Signs Temp Pulse Pulse Resp BP BP Pulse Ox 07/07/19 17:00 37.0 C 104 H 18 128/74 92 07/07/19 08:00 37 C 94 H 16 148/75 H 93 PG Care Time/CCT Total # of Minutes Spent Total Time Spent with Patient: Total time spent is greater than 50% in coordination of care (as documented) at patient's floor/unit and/or counseling patient: (1) Hypertension Hypertension type: essential hypertension Qualified Code(s): I10 - Essential (primary) hypertension
[2019-07-07] MEDS: METOPROLOL SUCC 25MG EXT REL TAB PO SCH ×2 (19:07→19:09)
[2019-07-07] MEDS: SIMVASTATIN 40 MG TAB PO SCH (20:27)
[2019-07-07] MEDS: SENNA 8.6 MG TAB PO SCH (20:28)
[2019-07-07] MEDS ORDERED: VANCOMYCIN HCL 1,250 MG in SODIUM CHLORIDE 0.9% 250 ML IV SCH (22:00)
[2019-07-08 06:54] LABS: Partial Thromboplastin Ratio 1.2; Partial Thromboplastin Time 31.8 Seconds (21.0-31.0)
--- NOTE | 2019-07-08 08:10 | Progress Note ---
DATE: 07/08/2019 SUBJECTIVE: An 84-year-old gentleman postop day 3 from a left below-knee amputation. He seems to be doing better this morning. Seems to be having less pain. No other complaints. OBJECTIVE: VITAL SIGNS: Temperature 36.9. Vital signs stable. GENERAL: Physical examination shows a pleasant, middle-aged male. I did wake him up this morning. EXTREMITIES: Examination of the left leg reveals the dressing to be clean, dry and intact. ASSESSMENT: An 84-year-old gentleman postop day 3 from a left below-knee amputation for an ischemic leg with infection. Seems to be doing okay. Pain seems better today. PLAN: The patient can be discharged at any time medically stable. We are going to leave this bandage on. No further antibiotics needed. Recommend DVT prophylaxis including thigh-high TEDs, SCDs, and aspirin twice a day. I will see him back in 2 weeks. Any orthopedic questions can be directed to me at [phone].
[2019-07-08] MEDS: LISINOPRIL 10 MG TAB PO SCH (08:56)
[2019-07-08] MEDS: ASCORBIC ACID 500 MG TAB PO SCH ×2 (08:56→20:54)
[2019-07-08] MEDS: FERROUS GLUCONATE 324 MG TAB PO SCH ×2 (08:56→16:55)
[2019-07-08] MEDS: ASPIRIN 81 MG ECTAB PO SCH ×2 (08:56→20:51)
[2019-07-08] MEDS: PHENYTOIN SODIUM ER 100 MG CAP PO SCH ×2 (08:56→20:51)
[2019-07-08] MEDS: METOPROLOL SUCC 25MG EXT REL TAB PO SCH (08:57)
[2019-07-08] MEDS: CEROVITE ADV FORMULA TAB PO SCH (08:57)
[2019-07-08] MEDS: DOCUSATE SODIUM 100 MG CAP PO SCH ×2 (08:57→20:51)
[2019-07-08] MEDS: HYDROCODONE/ACETAMOPHEN 5/325MG TAB PO SCH ×2 (09:01→20:52)
[2019-07-08] MEDS: INSULIN DETEMIR FLEXPEN/FLEX TOUCH 100 UNITS/ML 3ML SC SCH ×2 (09:03→20:52)
[2019-07-08] MEDS: INSULIN ASPART 100 UNITS/ML 3 ML PEN SC SCH ×4 (09:04→20:53)
[2019-07-08] MEDS: SENNA 8.6 MG TAB PO SCH (20:54)
[2019-07-08] MEDS: SIMVASTATIN 40 MG TAB PO SCH (20:55)
--- NOTE | 2019-07-08 22:33 | Hospitalist Progress Note ---
Date of Service July 08, 2019 Assessment & Plan (1) Osteomyelitis: Left foot extensive cellulitis/osteomyelitis/gangrene Surgical consult appreciated Postoperative day 3 status post below-knee amputation Tolerated procedure well with minimal blood loss Needed Zosyn/Vanco x 24 hours Currently discontinued all antibiotics, Dr. Mustafa is confident that all infection was cut out and margin pathology will be clear. Labs have arlin reviewed and appear in normal range. (2) Cellulitis: as the above (3) DVT prophylaxis: Heparin 5000 units sc Q8 hr (4) Diabetic foot infection: as the above (5) Surgical wound, non healing: We will add nutritional supplement to promote healing after the surgery (6) Diabetic foot ulcer associated with type 2 diabetes mellitus: as the above (7) PAD (peripheral artery disease): pt had extensive evaluation by vascular on 04/24 (8) Diabetes mellitus: continue lantus and will monitor blood sugars. (9) Seizure: stable, continue home dose of Phenytoin (10) Hyperlipidemia: stable , continue home dose of Simvastatin 40 mg PO Qhs (11) Hypertension: Restart lisinopril Blood pressure has been slightly elevated (12) Metabolic encephalopathy: Improved, likely secondary to infection Spent 36 minutes in this case. This included chart review and patient encounter. Subjective 84 yo male reports not new complaints at this time. He denies any fever, chills, nausea, vomiting. Review of Systems Review of Systems: Review of system Constitutional: No fever / no chills / no sweats / no weakness / no fatigue Eyes: no blurring of vision / no eye pain / no discharge / no redness ENT: no hearing loss / no epistaxis /no swallowing problems Respiratory: no cough / no wheezing / no SOB / no hemoptysis Cardiovascular: no Chest pain / no lower extremity edema / no palpitation Abdomen: no pain / no nausea / no vomiting / no constipation Musculoskeletal: Left below-knee amputation stump wrapped, well-tolerated Genitourinary: no dysuria / no incontinence / no urinary retention Neurologic: no focal weakness / no numbness/tingling / no ataxia Psychiatric: no depression symptoms / no anxiety / no insomnia Endocrine: no excessive thirst / no excessive urination Hematologic: no abnormal bleeding / no bruising / no LN swelling Skin: No rash / no pallor Physical Exam Physical Exam: General patient appears to be comfortable, not in acute distress HEENT: Atraumatic , normocephalic /no jaundice /no pallor /anicteric /no dry mucous membrane /normal external ear inspection Neck: Supple /no swelling /central trach Heart: S1/S2 normal/regular rate and rhythm/no gallop /no rub /no murmur Lungs: Clear to auscultation bilaterally/normal chest with expansion/no rhonchi/no rales/no wheezing/no use of accessory muscles of respiration Abdomen: Soft/nontender/no guarding/no rebound/no organomegaly/no pulsatile mass Musculoskeletal: Left lower extremity stump appears to be normal, currently wrapped with dressing Neuro exam: Awake alert oriented 3/cranial nerves II through XII appear to be intact/sensation intact/moves all extremities/no abnormal movements Psychiatric evaluation: No depressed mood/normal affect Skin: No rash on exposed skin area/no erythema Extremity: Normal pulse/no pitting edema/no clubbing or cyanosis Endocrine/lymphatic: No obvious lymphadenopathy /no lymphedema Results & Data Vital Signs (Past 12 Hours) Vital Signs Temp Pulse Pulse Resp BP BP Pulse Ox 07/08/19 19:12 37.0 C 101 H 17 119/60 07/08/19 15:21 36.8 C 93 H 17 133/76 92 07/08/19 11:30 36.9 C 97 H 20 130/75 91 PG Care Time/CCT Total # of Minutes Spent Total Time Spent with Patient: Total time spent is greater than 50% in coordination of care (as documented) at patient's floor/unit and/or counseling patient: (1) Hypertension Hypertension type: essential hypertension Qualified Code(s): I10 - Essential (primary) hypertension
[2019-07-09] MEDS ORDERED: VANCOMYCIN TROUGH ONE (01:30)
[2019-07-09 07:08] LABS: Hemoglobin 10.4 g/dL (14.0-18.0); Mean Corpuscular Hgb Conc 32.5 g/dL (32-36); Mean Corpuscular Volume 95.2 fL (80-100); Mean Platelet Volume 9.2 fL (7.4-10.4); Platelet Count 392 K/uL (130-400); RDW Coefficient of Variation 15.6 % (11.5-14.5); RDW Standard Deviation 54.6 fL (36.4-46.3); Red Blood Count 3.36 M/uL (4.7-6.1); White Blood Count 7.92 K/uL (4.8-10.8)
[2019-07-09 07:21] LABS: Partial Thromboplastin Ratio 1.1; Partial Thromboplastin Time 30.2 Seconds (21.0-31.0)
[2019-07-09 07:44] LABS: BUN Creatinine Ratio 20.9 (10-20); Calcium 9.2 mg/dl (8.5-10.1); Creatinine Clr Calc Pharmacy 58.7 ml/min; Est GFR (African American) 89.7; Est GFR (Non-African American) 77.4; Magnesium 1.8 mg/dl (1.8-2.4); Potassium 3.8 mmol/L (3.5-5.1)
[2019-07-09] MEDS: LISINOPRIL 10 MG TAB PO SCH (08:09)
[2019-07-09] MEDS: CEROVITE ADV FORMULA TAB PO SCH (08:09)
[2019-07-09] MEDS: FERROUS GLUCONATE 324 MG TAB PO SCH (08:09)
[2019-07-09] MEDS: HYDROCODONE/ACETAMOPHEN 5/325MG TAB PO SCH (08:09)
[2019-07-09] MEDS: ASCORBIC ACID 500 MG TAB PO SCH (08:10)
[2019-07-09] MEDS: METOPROLOL SUCC 25MG EXT REL TAB PO SCH (08:10)
[2019-07-09] MEDS: PHENYTOIN SODIUM ER 100 MG CAP PO SCH (08:10)
[2019-07-09] MEDS: DOCUSATE SODIUM 100 MG CAP PO SCH (08:11)
[2019-07-09] MEDS: ASPIRIN 81 MG ECTAB PO SCH (08:11)
[2019-07-09] MEDS: INSULIN ASPART 100 UNITS/ML 3 ML PEN SC SCH ×2 (08:14→12:13)
[2019-07-09] MEDS: INSULIN DETEMIR FLEXPEN/FLEX TOUCH 100 UNITS/ML 3ML SC SCH (08:15)
--- NOTE | 2019-07-15 21:32 | Discharge Summary ---
Date of Service July 09, 2019 Admission HPI Per Admitting Provider 84 y/o male with PMHx of DM ty 2, hyperlipidemia, , PAD, chronic osteomyelitis, hypertension, metabolic encephalopathy was brought from the [facility] due to nonhealing diabetic ulcer of the left foot. Pt was hypotensive in the ER but blood pressure improved after 1 L of IV NS. Pt denies fever, chills, chest pain, SOB, abdominal pain, frequency or urgency. Pt was recently admitted for the same issue and it was recommended to have amputation for for chronic osteo but he refused and requested conservative treatment only. ID recommended at that time Zyvox for 4 weeks which he continued at [facility]. In the prior admission(05/09-05/14) pt was seen by ortho and vascular.In addition pt was in the hospital prior to this visit from wound care with failing outpatient management for the amputation site of his left great toe. His initial surgery is 03/13. The patient did have a vascular angiogram performed on 04/[address] Ludwig Jaramillo who felt there is no stenosis that was amenable to intervention but there was significant stenosis of decreased blood flow to his foot. Summary: 1. Left lower extremity with mild to moderate distal SFA disease (no significant gradient on catheter pullback). 2. 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 Unsuccessful attempt at revascularization of occluded anterior tibial artery. Recommendations: Tibial arteries are small, calcified and diffusely diseased with complex collateral network. Intervention options limited and likelihood of success with further attempts flow. In the setting of age/comorbidities, active albeit slow wound healing, and nonambulatory status recommend continued medical management. Principal Diagnosis Osteomyelitis Discharge Exam General patient appears to be comfortable, not in acute distress HEENT: Atraumatic , normocephalic /no jaundice /no pallor /anicteric /no dry mucous membrane /normal external ear inspection Neck: Supple /no swelling /central trach Heart: S1/S2 normal/regular rate and rhythm/no gallop /no rub /no murmur Lungs: Clear to auscultation bilaterally/normal chest with expansion/no rhonchi/no rales/no wheezing/no use of accessory muscles of respiration Abdomen: Soft/nontender/no guarding/no rebound/no organomegaly/no pulsatile mass Musculoskeletal: Left lower extremity stump appears to be normal, currently wrapped with dressing Neuro exam: Awake alert oriented 3/cranial nerves II through XII appear to be intact/sensation intact/moves all extremities/no abnormal movements Psychiatric evaluation: No depressed mood/normal affect Skin: No rash on exposed skin area/no erythema Extremity: Normal pulse/no pitting edema/no clubbing or cyanosis Endocrine/lymphatic: No obvious lymphadenopathy /no lymphedema Discharge Data Allergies Allergy/AdvReac Type Severity Reaction Status Date / Time Iodinated Contrast- Oral and Allergy Mild Verified 07/01/19 12:01 IV Dye Consultations 07/01/19 14:33 ED Decision to Admit Stat 07/01/19 16:36 Consult Vascular Surgery Routine 07/03/19 08:35 Consult Orthopedic Surgery Routine 07/05/19 17:49 Consult Case Management - Discharge Planning Routine Procedures Performed Operation Date: 07/05/19 14:30 Actual Procedures p Left Leg Below the Knee Amputation(Left) - Claus Mustafa MD Ordered Studies 07/01/19 16:36 MR foot LT w/o con Stat Hospital Course (1) Osteomyelitis: Left foot extensive cellulitis/osteomyelitis/gangrene Surgical consult appreciated Tolerated procedure well with minimal blood loss Needed Zosyn/Vanco x 24 hours Currently discontinued all antibiotics, Dr. Mustafa is confident that all infection was cut out and margin pathology will be clear. Labs have arlin reviewed and appear in normal range. (2) Cellulitis: as the above (3) DVT prophylaxis: Heparin 5000 units sc Q8 hr (4) Diabetic foot infection: as the above (5) Surgical wound, non healing: We will add nutritional supplement to promote healing after the surgery (6) Diabetic foot ulcer associated with type 2 diabetes mellitus: as the above (7) PAD (peripheral artery disease): pt had extensive evaluation by vascular on 04/24 (8) Diabetes mellitus: continue lantus and will monitor blood sugars. (9) Seizure: stable, continue home dose of Phenytoin (10) Hyperlipidemia: stable , continue home dose of Simvastatin 40 mg PO Qhs (11) Hypertension: Restart lisinopril Blood pressure has been slightly elevated (12) Metabolic encephalopathy: Improved, likely secondary to infection Total Time Total Time Spent Total Time Spent (In Minutes): 32 Total Time Includes: Examination of the Patient, Discharge Planning and Medication Reconciliation Discharge Plan Discharge Items Patient Disposition: Transfer [facility] Reason For Visit: LEFT OSTEOMYELITIS Discharge Diagnosis: Left Below Knee Amputations Discharge Goals: Improve disease control and Therapeutic intervention Activity: Per 'Additional Instructions' section Weightbearing: Left non-weightbearing Non-emergency contact: Primary Care Provider and Surgeon Call non-emergency contact if: you have any medication questions Follow-up/Referrals: William Ni [Primary Care Provider] - Diet: Carb Consistent or DM2 Addtl Provider Instructions: Keep Dressing clean, dry, and in place until return to clinic appointment. Schedule return to Orthopedic appointment for 2-3 weeks from surgery date. Followup with PCP in 1-2 weeks. Prescriptions: New aspirin [Ecotrin Low Strength] 81 mg Tablet,Delayed Release (Dr/Ec) 81 mg PO BID Qty: 30 RF: 0 tamsulosin 0.4 mg Capsule 0.4 mg PO QAM Qty: 30 RF: 0 metoprolol succinate 25 mg Tablet Extended Release 24 Hr 25 mg PO QAM Qty: 30 RF: 0 Continued ascorbic acid (vitamin C) 500 mg capsule 500 mg PO BID RF: 0 insulin lispro [Humalog U-100 Insulin] 100 unit/mL solution subcut UD RF: 0 phenytoin sodium extended 100 mg Capsule 2 cap PO BID RF: 0 simvastatin 40 mg Tablet 40 mg PO HS RF: 0 lisinopril 10 mg Tablet 10 mg PO QAM RF: 0 Levemir U-100 Insulin 100 unit/mL Solution 15 unit SUBCUT HS RF: 0 Levemir U-100 Insulin 100 unit/mL Solution 20 unit SUBCUT QAM RF: 0 Novolog U-100 Insulin aspart 100 unit/mL Solution 15 unit SUBCUT BID RF: 0 acetaminophen 325 mg Tablet 2 tab PO Q6H MDD 3 gms PRN (Reason: Pain) RF: 0 Novolog U-100 Insulin aspart 100 unit/mL Solution 8 unit SUBCUT QAM RF: 0 multivitamin with minerals Tablet 1 tab PO QAM RF: 0 magnesium hydroxide [Milk of Magnesia] 400 mg/5 mL Suspension 30 ml PO DAILY PRN (Reason: Constipation) RF: 0 bisacodyl [Dulcolax (bisacodyl)] 10 mg Suppository 10 mg CA DAILY PRN (Reason: Constipation) RF: 0 Fleet Enema 19-7 gram/118 mL Enema 1 dose CA DAILY PRN (Reason: Constipation) RF: 0 protein supplement Liquid 30 ml PO BID RF: 0 Discontinued hydrocodone-acetaminophen 5-325 mg tablet 1 tab PO Q6H PRN (Reason: Pain) RF: 0 sulfamethoxazole-trimethoprim 800-160 mg tablet 1 tab PO BID RF: 0 hydrocodone-acetaminophen 5-325 mg tablet 1 tab PO BID RF: 0 linezolid 600 mg tablet 600 mg PO BID RF: 0 Stand-Alone Forms: [facility] Discharge Orders: Discharge Order (Routine); Ordered 07/09/19 Ordered By: Ayo English Skilled Items Patient informed of condition?: Yes DNR: No Discharge Level of Care: Skilled Communicable Disease: No Discharge Prognosis: Stable Admission Data Admit Date/Time: 07/01/19 15:45 Attending Provider: Ayo English Admit Provider: Jair Sheets Primary Care Provider: William Ni Other Providers: Jair Sheets ; Maco Patel ; Anjel Neil Service: Telemetry Medical Other Interventions: Discharge Summary Assessment (RN) Last Done: 07/09/19 12:27 DC Date/Time DO NOT enter until pt leaves facility: 07/09/19 14:31
== END 2019-07-09 14:31 | DRG 239 ==
LOC: ED 11:48 → 2W 15:45 → SUATTDRO 15:45 → 2W 16:10